=== PATIENT | female | born 1960 | race African-American/Black ===

== ENCOUNTER 2017-01-20 12:25 | Inpatient (IN) | payer BC ==
[2017-01-20] VITALS (7 sets, daily range): BP systolic 120–157; BP diastolic 67–90
[~2017-01-20] VITALS: Ht 157.5 cm; Wt 114.4 kg
[~2017-01-20 12:25] MED LIST: ASPI-482 PO; GLIM1TAB2 PO; HYDR-971 PO; HYDR12.58 PO; LISI-334 PO; METF-620 PO; PROVENTIL HFA6.7 GM IH; SITA100T PO
--- NOTE | 2017-01-20 12:53 | EKG ---
[facility] [address] [place] [address] Test Date: 2017-01-20 Test Time: 12:50:22 Pat Name: NING ROUSE Department: Room: Gender: F [employer]: : 1960 Requested By: KELY KRISHNAMURTHY Order Number: [id number] Reading MD: Lianne Beltrán Measurements Intervals [place] Rate: 78 P: 37 [place]: 134 QRS: 32 QRSD: 78 T: 138 QT: 388 QTc: 446 Interpretive Statements SINUS RHYTHM ST & T ABNORMALITY, CONSIDER HIGH LATERAL ISCHEMIA OR LEFT VENTRICULAR STRAIN ABNORMAL ECG RI6.01 No previous ECG available for comparison Electronically Signed On 01-22-2017 17:20:26 CDT by Lianne Beltrán
[2017-01-20] MEDS ORDERED: IV NORMAL SALINE 1000ML BAG 1,000 ML IV SCH ×2 (12:57→16:36)
[2017-01-20 13:15] LABS: BILIRUBIN,URINE NEGATIVE (NEG); GLUCOSE,URINE 100 mg/dL (NEG); NITRITE,URINE NEGATIVE (NEG); PROTEIN,URINE >=300 mg/dL (NEG-TRACE); UROBILINOGEN,URINE 0.2 mg/dL (0.2 mg/dL)
--- NOTE | 2017-01-20 13:18 | PHYS DOC ---
Past Medical History Past Medical History: Asthma, CVA, Diabetes-Type II, Hypertension, TIA Past Surgical History: Hysterectomy, Knee Replacement Alcohol Use: None Drug Use: None Adult General Chief Complaint Chief Complaint: WEAKNESS/GENERALIZED HPI HPI Patient is a 56 year old female who presents with complaint of confusion and weakness. Patient states that her symptoms came on suddenly this morning. Patient states that she is having difficulty remembering "periods of time" throughout the day today. The patient is accompanied by her spouse who confirms that the patient's behavior has been altered. He states that at times she "doesn 't seem there." He confirms that her activity level has gone down significantly over the past 2 days. Patient states that she has history of hypertension and that she took her blood pressure medication this morning but admits that she did not take it yesterday. Patient has not had any fevers, chest pain, nausea, or abdominal pain. Patient denies any focal weakness, difficulty with speech or swallowing, or vision loss. Review of Systems Review of Systems Constitutional: Generalized weakness, denies fever or chills [] Eyes: Denies change in visual acuity, redness, or eye pain [] HENT: Denies nasal congestion or sore throat [] Respiratory: Denies cough or shortness of breath [] Cardiovascular: Denies chest pain or edema [] GI: Denies abdominal pain, nausea, vomiting, bloody stools or diarrhea [] : Denies dysuria or hematuria [] Musculoskeletal: Denies back pain or joint pain [] Integument: Denies rash or skin lesions [] Neurologic: Confusion, denies headache, focal weakness or sensory changes [] Current Medications Current Medications Current Medications Medications (Trade) Dose Ordered Sig/Kanu Start Time Stop Time Status Last Admin Dose Admin Nicardipine HCl/ Sodium Chloride (Cardene/Iv Sodium Chloride 0.9% 250ml) 270 ml @ 0 mls/hr CONT PRN 01/20/17 13:00 01/20/17 13:14 0 MLS/HR Sodium Chloride 1,000 ml @ 100 mls/hr Q10H 01/20/17 12:57 01/20/17 22:56 01/20/17 13:27 100 MLS/HR Allergies Allergies Allergies Uncoded Allergies Type Severity Reaction Last Updated Verified eggs Adverse Reaction Intermediate Nausea/vomiting 09/02/14 Physical Exam Physical Exam Constitutional: Alert, afebrile, hypertensive, no acute distress. [] HENT: Normocephalic, atraumatic, bilateral external ears normal, oropharynx moist, no oral exudates, nose normal. [] Eyes: PERRLA, EOMI, conjunctiva normal, no discharge. [] Neck: Normal range of motion, no tenderness, supple, no stridor. [] Cardiovascular:Heart rate regular rhythm, no murmur [] Lungs & Thorax: Bilateral breath sounds clear to auscultation [] Abdomen: Bowel sounds normal, soft, no tenderness, no masses, no pulsatile masses. [] Skin: Warm, dry, no erythema, no rash. [] Back: No tenderness, no CVA tenderness. [] Extremities: No tenderness, no cyanosis, no clubbing, ROM intact, no edema. [] Neurologic: Alert and oriented X 3, disoriented to events, normal motor function , normal sensory function, no focal deficits noted. [] Current Patient Data Vital Signs Vital Signs Date Time Temp Pulse Resp B/P Pulse Ox O2 Delivery O2 Flow Rate FiO2 01/20/17 13:52 76 20 195/89 99 01/20/17 12:30 97.8 Room Air 97.8 Lab Values Laboratory Tests Test 01/20/17 12:45 01/20/17 13:20 01/20/17 14:05 Urine Collection Type Void Urine Color Yellow Urine Clarity Clear Urine pH 6.0 Urine Specific [place] 1.010 Urine Protein >=300mg/dL (NEG-TRACE) Urine Glucose (UA) 100mg/dL (NEG) Urine Ketones (Stick) Negativemg/dL (NEG) Urine Blood Small (NEG) Urine Nitrite Negative (NEG) Urine Bilirubin Negative (NEG) Urine Urobilinogen Dipstick 0.2mg/dL (0.2 mg/dL) Urine Leukocyte Esterase Trace (NEG) Urine RBC Occ/HPF (0-2) Urine WBC 5-10/HPF (0-4) Urine Squamous Epithelial Cells Mod/LPF Urine Bacteria Few/HPF (0-FEW) White Blood Count 9.1x10^3/uL (4.0-11.0) Red Blood Count 4.17x10^6/uL (3.50-5.40) Hemoglobin 12.0g/dL (12.0-15.5) Hematocrit 36.7% (36.0-47.0) Mean Corpuscular Volume 88fL (79-100) Mean Corpuscular Hemoglobin 29pg (25-35) Mean Corpuscular Hemoglobin Concent 33g/dL (31-37) Red Cell Distribution Width 13.3% (11.5-14.5) Platelet Count 368x10^3/uL (140-400) Neutrophils (%) (Auto) 63% (31-73) Lymphocytes (%) (Auto) 29% (24-48) Monocytes (%) (Auto) 5% (0-9) Eosinophils (%) (Auto) 3% (0-3) Basophils (%) (Auto) 1% (0-3) Neutrophils # (Auto) 5.7x10^3uL (1.8-7.7) Lymphocytes # (Auto) 2.6x10^3/uL (1.0-4.8) Monocytes # (Auto) 0.5x10^3/uL (0.0-1.1) Eosinophils # (Auto) 0.2x10^3/uL (0.0-0.7) Basophils # (Auto) 0.0x10^3/uL (0.0-0.2) Prothrombin Time 13.1SEC (11.7-14.0) Prothrombin Time INR 1.1 (0.8-1.1) PTT 40SEC (24-38) H Sodium Level 140mmol/L (136-145) Potassium Level 3.9mmol/L (3.5-5.1) Chloride Level 104mmol/L (98-107) Carbon Dioxide Level 27mmol/L (21-32) Anion Gap 9 (6-14) Blood Urea Nitrogen 16mg/dL (7-20) Creatinine 1.0mg/dL (0.6-1.0) Estimated GFR (Cockcroft-Gault) 68.9 BUN/Creatinine Ratio 16 (6-20) Glucose Level 155mg/dL (70-99) H Calcium Level 8.8mg/dL (8.5-10.1) Magnesium Level 2.0mg/dL (1.8-2.4) Total Bilirubin 0.3mg/dL (0.2-1.0) Aspartate Amino Transferase (AST) 16U/L (15-37) Alanine Aminotransferase (ALT) 18U/L (14-59) Alkaline Phosphatase 142U/L (46-116) H Total Protein 7.7g/dL (6.4-8.2) Albumin 2.9g/dL (3.4-5.0) L Albumin/Globulin Ratio 0.6 (1.0-1.7) L Lipase 79U/L (73-393) Laboratory Tests 01/20/17 13:20 Laboratory Tests 01/20/17 14:05 EKG EKG Interpreted by me: Heart rate 78, sinus rhythm, normal intervals, normal axis, T -wave inversions in the lateral leads and in V5 and V6, no acute ST elevations or depressions [] Radiology/Procedures Radiology/[place] [address] IMAGING REPORT Signed PATIENT: NING ROUSE ACCOUNT: [id number] : 1960 LOCATION: ER AGE: 56 SEX: F EXAM STATUS: REG ER ORD. PHYSICIAN: KELY KRISHNAMURTHY MD REASON: altered mental status, rule out acute cardiopulmonary abnormality PROCEDURE: PORTABLE CHEST 1V Portable chest, 01/20/2017: History: Altered mental status Comparison is made to a study from 11/03/2016. The heart size and pulmonary vascularity are normal. No pulmonary infiltrates are seen. There is no evidence of pleural fluid. Scattered spurs are present in the spine. IMPRESSION: No acute cardiopulmonary abnormality is detected. DICTATED and SIGNED BY: RUIZ ALMARAZ MD DATE: 01/20/17 145 CC: KELY KRISHNAMURTHY MD; PORTER LY MD ~ [address] [address] IMAGING REPORT Signed PATIENT: NING ROUSE ACCOUNT: [id number] : 1960 LOCATION: ER AGE: 56 SEX: F EXAM STATUS: REG ER ORD. PHYSICIAN: KELY KRISHNAMURTHY MD REASON: altered mental status PROCEDURE: CT HEAD WO CONTRAST Indication altered mental status. History of TIAs. Noncontrast images of the head were obtained. No prior imaging of the head is available. The calvarium appears unremarkable. The visualized paranasal sinuses appear normal. There is some underlying atrophy. There is a lucency in the right white deep white matter likely reflecting old microvascular disease. There is no hemorrhage. A mass or definite acute finding is not seen. If clinically warranted additional imaging evaluation could be obtained with MRI. IMPRESSION: Chronic changes. No definite acute finding seen on noncontrast CT images of the head PQRS Compliance Statement: One or more of the following individualized dose reduction techniques were utilized for this examination: 1. Automated exposure control 2. Adjustment of the mA and/or kV according to patient size 3. Use of iterative reconstruction technique DICTATED and SIGNED BY: JAYLEN MUKHERJEE MD DATE: 01/20/17 1344 CC: KELY KRISHNAMURTHY MD; PORTER LY MD ~ [] Course & Med Decision Making Course & Med Decision Making Pertinent Labs and Imaging studies reviewed. (See chart for details) Patient was started on IV Cardene in the emergency department due to presence of critically high blood pressure and altered mental status. Patient's blood pressure was reduced by 25% while on the drip in the emergency department and patient's vital signs are stabilizing at this time. The patient will need admission for continued treatment of hypertensive encephalopathy. I spoke with Dr. Talamantes who accepted care patient in hospital. Critical care time excluding procedures: 35 minutes Dragon Disclaimer Dragon Disclaimer This electronic medical record was generated, in whole or in part, using a voice recognition dictation system. Departure Departure Impression: Primary Impression: Hypertensive encephalopathy Additional Impression: Moderate protein malnutrition Disposition: ADMITTED INPATIENT Admitting Physician: Jessica Talamantes Condition: GUARDED Referrals: PORTER LY MD (PCP) Problem Qualifiers KELY KRISHNAMURTHY MD Jan 20, 2017 13:18
[2017-01-20 13:31] LABS: BASO % 1 % (0-3); EOS % 3 % (0-3); HEMATOCRIT 36.7 % (36.0-47.0); LYMPH # 2.6 x10^3/uL (1.0-4.8); LYMPH % 29 % (24-48); MEAN CORPUSCULAR HEMOGLOBIN 29 pg (25-35); MEAN CORPUSCULAR HGB CONC 33 g/dL (31-37); MEAN CORPUSCULAR VOLUME 88 fL (79-100); MONO % 5 % (0-9); NEUT % 63 % (31-73); PLATELET COUNT 368 x10^3/uL (140-400); RED BLOOD COUNT 4.17 x10^6/uL (3.50-5.40); RED CELL DISTRIBUTION WIDTH 13.3 % (11.5-14.5); WHITE BLOOD COUNT 9.1 x10^3/uL (4.0-11.0)
[2017-01-20 13:34] LABS: BACTERIA,URINE FEW /HPF (0-FEW); RBC,URINE OCC /HPF (0-2); SQUAMOUS EPITHELIAL CELL,UR MOD /LPF
[2017-01-20 13:40] LABS: INR 1.1 (0.8-1.1); PROTHROMBIN TIME PATIENT 13.1 SEC (11.7-14.0)
--- NOTE | 2017-01-20 14:03 | RAD ---
Portable chest, 01/20/2017: History: Altered mental status Comparison is made to a study from 11/03/2016. The heart size and pulmonary vascularity are normal. No pulmonary infiltrates are seen. There is no evidence of pleural fluid. Scattered spurs are present in the spine. IMPRESSION: No acute cardiopulmonary abnormality is detected.
--- NOTE | 2017-01-20 14:05 | RAD ---
Indication altered mental status. History of TIAs. Noncontrast images of the head were obtained. No prior imaging of the head is available. The calvarium appears unremarkable. The visualized paranasal sinuses appear normal. There is some underlying atrophy. There is a lucency in the right white deep white matter likely reflecting old microvascular disease. There is no hemorrhage. A mass or definite acute finding is not seen. If clinically warranted additional imaging evaluation could be obtained with MRI. IMPRESSION: Chronic changes. No definite acute finding seen on noncontrast CT images of the head PQRS Compliance Statement: One or more of the following individualized dose reduction techniques were utilized for this examination: 1. Automated exposure control 2. Adjustment of the mA and/or kV according to patient size 3. Use of iterative reconstruction technique
[2017-01-20 14:27] LABS: CALCIUM 8.8 mg/dL (8.5-10.1); GFR 68.9; POTASSIUM 3.9 mmol/L (3.5-5.1)
--- NOTE | 2017-01-20 14:28 | ACF ---
Admission Forms Criteria MENTAL STATUS CHANGE Clinical Indications for Inpatient Care (Place 'X' for any and all applicable criteria): Ongoing inpatient care may be needed for 1 or more of the following(1)(2)(3)(5)( 6): [X]I. Suspected serious etiology (eg, medical disorder, AGED OR DISABLED CARER event) of altered mental status [ ]II. Danger to self or others not manageable at lower level of care [ ]III. Grave disability (eg, inability to perform self care necessary at lower level of care) [ ]IV. Agitation or inappropriate behavior interfering with care for primary condition (eg, attempting to discontinue lines or drains prematurely, unable to cooperate with respiratory care) [ ]V. Delirium [A] [D][E] as described by 1 or more of the following(26): [ ]a) Delirium due to alcohol or sedative [F] withdrawal [ ]b) Delirium of uncertain etiology that has not responded to appropriate empiric treatment [ ]c) Delirium that prevents performance of a life-sustaining function (eg, feeding or hydrating oneself) [ ]. General contraindications and/or Inappropriate clinical situations for Observational Care in patients with Mental Status Change, when ANY ONE of the following is required: [ ]a) Prediction of prolongation of LOS based on ANY ONE of the following may be considered as a contraindication for observational care 2, 3, 4, 5, 6, 7, 8, 9, 10, 11 [ ]i) Age > 65 yrs. [ ]ii) Patient arriving by ambulance [ ]iii) Patient with high acuity [ ]iv) Patient requiring vital sign monitoring [ ]v) Patient on IV medication [ ]b) Systolic blood pressures greater than or equal to 180mmHg 3, 12 [ ]c) Patient with altered mental status including delirium and other alteration of consciousness, (3) [ ]d) Patient whose discharge disposition will be to a assisted home or rehabilitation home should not be managed in Emergency Department Observation Unit. CMS rule requires 3 days hospital stay before such placement.3,13 [ ]e) Patient with failure to thrive due to broad array of etiologies 3,16,17 [ ]f) Inability to ambulate 3,14 Extended stay beyond goal length of stay for the primary condition may be needed until ALL of the following are present(3)(5): [ ]a) Underlying medical etiology of mental status change is absent, or has been established and adequately treated [ ]b) Danger to self or others is absent or manageable at lower level of care. [ ]c) Behavior crisis management, including physical or chemical restraints, is not required or available at lower level of car [ ]d) Substance or alcohol withdrawal is absent or manageable at lower level of care. [ ]e) Behavioral symptoms (eg, agitation, somnolence, inappropriate behavior) are absent, or are manageable at lower level of care. The original [facility] [employer] content created by [facility] has been revised. The portions of the content which have been revised are identified through the use of italic text or in bold, and [facility] has neither reviewed nor approved the modified material. All other unmodified content is copyright [facility]. Please see references footnoted in the original [facility] edition 2016 Admission Criteria Met?: Yes EMILIANO BLAND Jan 20, 2017 14:28
[2017-01-20 14:33] LABS: ALBUMIN 2.9 g/dL (3.4-5.0); ALBUMIN/GLOBULIN RATIO 0.6 (1.0-1.7); TOTAL BILIRUBIN 0.3 mg/dL (0.2-1.0); TOTAL PROTEIN 7.7 g/dL (6.4-8.2)
[2017-01-20] MEDS ORDERED: ONDANSETRON PF 4 MG/2 ML VIAL. IV PRN (16:45)
[2017-01-20] MEDS ORDERED: fentaNYL PF VIAL 100 MCG/2 ML VIAL IV PRN (16:45)
[2017-01-20] MEDS ORDERED: ACETAMINOPHEN 325 MG TABLET. PO PRN (16:45)
[2017-01-20] MEDS ORDERED: HYDROCODONE/APAP 5/325MG TABLET. PO PRN (17:30)
[2017-01-20] MEDS ORDERED: NON FORMULARY ITEM (Albuterol Sulfate (Proventil Hfa Inhaler) 2 PUFF) IH PRN (17:30)
[2017-01-20] MEDS ORDERED: ALBUTEROL SULFATE 2.5 MG/3 ML NEBU. NEB PRN (17:45)
--- NOTE | 2017-01-20 17:51 | PDOC1 ---
History and Physical Date of Admission Date of Admission DATE: 01/20/17 TIME: 17:51 Identification/Chief Complaint Chief Complaint confusion Problems: Source Source: Caregiver, Chart review, Patient History of Present Illness History of Present Illness Ms. Rinaldi, is a 56 year old female w/ complaint of confusion and weakness. She and report a headache yesterday, then confusion. She missed her meds yesterday, did just get refills on meds Patient states that her symptoms were progressively worse this morning. Patient states that she is having difficulty remembering "periods of time" throughout the day today. Spouse confirms altered mental status, but now seems improved she reports her headache is better, on cardene gtt, no other change noted Past Medical History Cardiovascular: HTN Pulmonary: Asthma Renal/: No pertinent hx Endocrine: No pertinent hx Family History Family History: No Significant Social History Smoke: No ALCOHOL: none Drugs: None Current Problem List Problem List Problems Medical Problems: (1) Hypertensive encephalopathy Status: Acute (2) Moderate protein malnutrition Status: Acute Problems: Current Medications Current Medications Current Medications Sodium Chloride 1,000 ml @ 100 mls/hr Q10H IV Last administered on 01/20/17 13:27; Start 01/20/17 at 12:57; Stop 01/20/17 at 22:56 Nicardipine HCl/ Sodium Chloride (Cardene/Iv Sodium Chloride 0.9% 250ml) 270 ml @ 0 mls/hr CONT PRN IV SEE I/O RECORD Last administered on 01/20/17 13:14; Start 01/20/17 at 13:00 Ondansetron HCl (Zofran) 4 mg PRN Q8HRS PRN IV NAUSEA/VOMITING; Start 01/20/17 at 16:45; Stop 01/21/17 at 16:44 Fentanyl Citrate 50 mcg 50 mcg PRN Q2HR PRN IV PAIN; Start 01/20/17 at 16:45; Stop 01/21/17 at 16:44 Sodium Chloride (Iv Sodium Chloride 0.9% 1000ml Bag) 1,000 ml @ 100 mls/hr Q10H IV ; Start 01/20/17 at 16:36; Stop 01/21/17 at 16:35 Acetaminophen (Tylenol) 650 mg PRN Q4HRS PRN PO FEVER; Start 01/20/17 at 16:45 ; Stop 01/21/17 at 16:44 Aspirin (Ecotrin) 81 mg DAILYWBKFT PO ; Start 01/21/17 at 08:00 Acetaminophen/ Hydrocodone Bitart (Lortab 5/325) 1 tab PRN Q6HRS PRN PO PAIN; Start 01/20/17 at 17:30 Lisinopril (Prinivil) 20 mg BID PO ; Start 01/20/17 at 21:00 Metformin HCl (Glucophage) 850 mg BIDWMEALS PO ; Start 01/20/17 at 18:00 Non-Formulary Medication 2 puff Q4HRS PRN IH SHORTNESS OF BREATH; Start at 17:30; Status UNV Glimepiride (Amaryl) 1 mg DAILYWBKFT PO ; Start 01/21/17 at 08:00 Hydrochlorothiazide (Microzide) 12.5 mg DAILY PO ; Start 01/21/17 at 09:00 Linagliptin (Tradjenta) 5 mg DAILY PO ; Start 01/21/17 at 09:00 Albuterol Sulfate (Ventolin Neb Soln) 2.5 mg PRN Q4HRS PRN NEB SHORTNESS OF BREATH; Start 01/20/17 at 17:45 Active Scripts Active [place]well 5-325 Tablet (Acetaminophen/Hydrocodone Bitart) 1 Each Tablet 1 Tab PO PRN Q6HRS PRN Reported Proventil Hfa Inhaler (Albuterol Sulfate) 6.7 Gm Hfa.aer.ad 2 Puff IH Q4HRS PRN Lisinopril 20 Mg Tablet 20 Tab PO BID Hydrochlorothiazide Tablet (Hydrochlorothiazide) 12.5 Mg Tablet 1 Tab PO DAILY Glimepiride 1 Mg Tablet 1 Tab PO DAILY Januvia (Sitagliptin Phosphate) 100 Mg Tablet 1 Tab PO DAILY Metformin Hcl 1,000 Mg Tablet 1 Tab PO BID Aspir 81 (Aspirin) 81 Mg Tablet. 1 Tab PO DAILY Allergies Allergies: Uncoded Allergies: eggs (Adverse Reaction, Intermediate, Nausea/vomiting, 09/02/14) ROS General: YES: Fatigue, No: Appetite, Chills, Malaise, Night Sweats, Other PSYCHOLOGICAL ROS: YES: Concentration difficultie, Memory difficulties, No: Anxiety, Behavioral Disorder, Decreased libido, Depression, Disorientation, Hallucinations, Hostility, Irritablity, Mood Swings, Obsessive thoughts, Other, Sleep disturbances Eyes: No Blurry vision, No Decreased vision, No Double vision, No Dry eyes, No Excessive tearing, No Eye Pain, No Itchy Eyes, No Loss of vision, No Other, No Photophobia, No Scotomata, No Uses contacts, No Uses glasses HEENT: YES: Heacaches, No: Epistaxis, Hearing change, Nasal congestion, Nasal discharge, Oral lesions, Other, Sinus pain, Sneezing, Snoring, Sore Throat, Tinnitus, Vertigo, Visual Changes, Vocal changes Respiratory: No: Cough, Hemoptysis, Orthopnea, Other, Pleuritic Pain, SOB with excertion, Shortness of breath, Sputum Changes, Stridor, Tachypnea, Wheezing Cardiovascular: No Chest Pain, No Edema, No Lt Headedness, No Orthopnea, No Other, No Palpitations, No Paroxysmal Noc. Dyspnea Gastrointestinal: No Abdominal Pain, No Constipation, No Diarrhea, No Hematochezia, No Melena, No Nausea, No Other, No Vomiting Genitourinary: No , No , No , No , No , No , No , No Discharge, No Dysuria, No Flank Pain, No Frequency, No Hematuria, No Incontinence, No Other, No Pain, No Retention, No Urgency Musculoskeletal: No Gait Disturbance, No Joint Pain, No Joint Stiffness, No Joint Swelling, No Muscle Pain, No Muscular Weakness, No Other, No Pain In:, No Swelling In: Neurological: Yes Behavorial Changes, Yes Confusion, Yes Headaches, Yes Memory Loss Skin: No Acne, No Dry Skin, No Eczema, No Hair Changes, No Lumps, No Mole Changes, No Mottling, No Nail Changes, No Other, No Pruritus, No Rash, No Skin Lesion Changes Physical Exam General: Alert, Oriented X3, Cooperative, No acute distress, Other (improved per spouse and patient) HEENT: Atraumatic, PERRLA, EOMI, Mucous membr. moist/pink Abdomen: Normal bowel sounds, Soft Extremities: No clubbing, No edema, Normal pulses Skin: No breakdown, No significant lesion Neuro: Normal tone, Sensation intact, Cranial nerves 3-12 NL Psych/Mental Status: Mood NL Vitals Vitals Vital Signs Date Time Temp Pulse Resp B/P Pulse Ox O2 Delivery O2 Flow Rate FiO2 01/20/17 16:45 86 18 163/74 97 Room Air 01/20/17 12:30 97.8 97.8 Labs Labs Laboratory Tests Test 01/20/17 12:45 01/20/17 13:20 01/20/17 14:05 Urine Collection Type Void Urine Color Yellow Urine Clarity Clear Urine pH 6.0 Urine Specific [place] 1.010 Urine Protein >=300mg/dL (NEG-TRACE) Urine Glucose (UA) 100mg/dL (NEG) Urine Ketones (Stick) Negativemg/dL (NEG) Urine Blood Small (NEG) Urine Nitrite Negative (NEG) Urine Bilirubin Negative (NEG) Urine Urobilinogen Dipstick 0.2mg/dL (0.2 mg/dL) Urine Leukocyte Esterase Trace (NEG) Urine RBC Occ/HPF (0-2) Urine WBC 5-10/HPF (0-4) Urine Squamous Epithelial Cells Mod/LPF Urine Bacteria Few/HPF (0-FEW) White Blood Count 9.1x10^3/uL (4.0-11.0) Red Blood Count 4.17x10^6/uL (3.50-5.40) Hemoglobin 12.0g/dL (12.0-15.5) Hematocrit 36.7% (36.0-47.0) Mean Corpuscular Volume 88fL (79-100) Mean Corpuscular Hemoglobin 29pg (25-35) Mean Corpuscular Hemoglobin Concent 33g/dL (31-37) Red Cell Distribution Width 13.3% (11.5-14.5) Platelet Count 368x10^3/uL (140-400) Neutrophils (%) (Auto) 63% (31-73) Lymphocytes (%) (Auto) 29% (24-48) Monocytes (%) (Auto) 5% (0-9) Eosinophils (%) (Auto) 3% (0-3) Basophils (%) (Auto) 1% (0-3) Neutrophils # (Auto) 5.7x10^3uL (1.8-7.7) Lymphocytes # (Auto) 2.6x10^3/uL (1.0-4.8) Monocytes # (Auto) 0.5x10^3/uL (0.0-1.1) Eosinophils # (Auto) 0.2x10^3/uL (0.0-0.7) Basophils # (Auto) 0.0x10^3/uL (0.0-0.2) Prothrombin Time 13.1SEC (11.7-14.0) Prothromb Time International Ratio 1.1 (0.8-1.1) Activated Partial Thromboplast Time 40SEC (24-38) Sodium Level 140mmol/L (136-145) Potassium Level 3.9mmol/L (3.5-5.1) Chloride Level 104mmol/L (98-107) Carbon Dioxide Level 27mmol/L (21-32) Anion Gap 9 (6-14) Blood Urea Nitrogen 16mg/dL (7-20) Creatinine 1.0mg/dL (0.6-1.0) Estimated GFR (Cockcroft-Gault) 68.9 BUN/Creatinine Ratio 16 (6-20) Glucose Level 155mg/dL (70-99) Calcium Level 8.8mg/dL (8.5-10.1) Magnesium Level 2.0mg/dL (1.8-2.4) Total Bilirubin 0.3mg/dL (0.2-1.0) Aspartate Amino Transf (AST/SGOT) 16U/L (15-37) Alanine Aminotransferase (ALT/SGPT) 18U/L (14-59) Alkaline Phosphatase 142U/L (46-116) Total Protein 7.7g/dL (6.4-8.2) Albumin 2.9g/dL (3.4-5.0) Albumin/Globulin Ratio 0.6 (1.0-1.7) Lipase 79U/L (73-393) Laboratory Tests Test 01/20/17 12:45 01/20/17 13:20 01/20/17 14:05 Urine Collection Type Void Urine Color Yellow Urine Clarity Clear Urine pH 6.0 Urine Specific [place] 1.010 Urine Protein >=300mg/dL (NEG-TRACE) Urine Glucose (UA) 100mg/dL (NEG) Urine Ketones (Stick) Negativemg/dL (NEG) Urine Blood Small (NEG) Urine Nitrite Negative (NEG) Urine Bilirubin Negative (NEG) Urine Urobilinogen Dipstick 0.2mg/dL (0.2 mg/dL) Urine Leukocyte Esterase Trace (NEG) Urine RBC Occ/HPF (0-2) Urine WBC 5-10/HPF (0-4) Urine Squamous Epithelial Cells Mod/LPF Urine Bacteria Few/HPF (0-FEW) White Blood Count 9.1x10^3/uL (4.0-11.0) Red Blood Count 4.17x10^6/uL (3.50-5.40) Hemoglobin 12.0g/dL (12.0-15.5) Hematocrit 36.7% (36.0-47.0) Mean Corpuscular Volume 88fL (79-100) Mean Corpuscular Hemoglobin 29pg (25-35) Mean Corpuscular Hemoglobin Concent 33g/dL (31-37) Red Cell Distribution Width 13.3% (11.5-14.5) Platelet Count 368x10^3/uL (140-400) Neutrophils (%) (Auto) 63% (31-73) Lymphocytes (%) (Auto) 29% (24-48) Monocytes (%) (Auto) 5% (0-9) Eosinophils (%) (Auto) 3% (0-3) Basophils (%) (Auto) 1% (0-3) Neutrophils # (Auto) 5.7x10^3uL (1.8-7.7) Lymphocytes # (Auto) 2.6x10^3/uL (1.0-4.8) Monocytes # (Auto) 0.5x10^3/uL (0.0-1.1) Eosinophils # (Auto) 0.2x10^3/uL (0.0-0.7) Basophils # (Auto) 0.0x10^3/uL (0.0-0.2) Prothrombin Time 13.1SEC (11.7-14.0) Prothromb Time International Ratio 1.1 (0.8-1.1) Activated Partial Thromboplast Time 40SEC (24-38) Sodium Level 140mmol/L (136-145) Potassium Level 3.9mmol/L (3.5-5.1) Chloride Level 104mmol/L (98-107) Carbon Dioxide Level 27mmol/L (21-32) Anion Gap 9 (6-14) Blood Urea Nitrogen 16mg/dL (7-20) Creatinine 1.0mg/dL (0.6-1.0) Estimated GFR (Cockcroft-Gault) 68.9 BUN/Creatinine Ratio 16 (6-20) Glucose Level 155mg/dL (70-99) Calcium Level 8.8mg/dL (8.5-10.1) Magnesium Level 2.0mg/dL (1.8-2.4) Total Bilirubin 0.3mg/dL (0.2-1.0) Aspartate Amino Transf (AST/SGOT) 16U/L (15-37) Alanine Aminotransferase (ALT/SGPT) 18U/L (14-59) Alkaline Phosphatase 142U/L (46-116) Total Protein 7.7g/dL (6.4-8.2) Albumin 2.9g/dL (3.4-5.0) Albumin/Globulin Ratio 0.6 (1.0-1.7) Lipase 79U/L (73-393) VTE Prophylaxis Ordered VTE Prophylaxis Devices: Yes VTE Pharmacological Prophylaxi: No Assessment/Plan Assessment/Plan acute encephalopathy malignant htn morbid obesity, BMI 46 DM2, cont home meds proteinuria on UA, check spot protein, consult renal, BP and DM2 risk of nephrosis, cont KENNA-i admitted to ICU for cardene gtt SYED BRENNER MD Jan 20, 2017 17:51
[2017-01-20] MEDS: METFORMIN 850 MG TABLET PO SCH (18:00)
[2017-01-20] MEDS: LISINOPRIL 20 MG TABLET PO SCH (20:15)
[2017-01-21] VITALS (16 sets, daily range): BP systolic 114–161; BP diastolic 61–95
[2017-01-21 05:16] LABS: BASO # 0.1 x10^3/uL (0.0-0.2); BASO % 1 % (0-3); EOS % 3 % (0-3); HEMATOCRIT 34.7 % (36.0-47.0); HEMOGLOBIN 11.5 g/dL (12.0-15.5); LYMPH # 2.9 x10^3/uL (1.0-4.8); LYMPH % 30 % (24-48); MEAN CORPUSCULAR HEMOGLOBIN 29 pg (25-35); MEAN CORPUSCULAR HGB CONC 33 g/dL (31-37); MEAN CORPUSCULAR VOLUME 87 fL (79-100); MONO % 6 % (0-9); NEUT % 60 % (31-73); PLATELET COUNT 359 x10^3/uL (140-400); RED BLOOD COUNT 3.98 x10^6/uL (3.50-5.40); RED CELL DISTRIBUTION WIDTH 12.9 % (11.5-14.5); WHITE BLOOD COUNT 9.5 x10^3/uL (4.0-11.0)
[2017-01-21 05:22] LABS: CALCIUM 8.4 mg/dL (8.5-10.1); CREATININE 1.1 mg/dL (0.6-1.0); GFR 61.7; POTASSIUM 4.3 mmol/L (3.5-5.1)
[2017-01-21] MEDS: LINAGLIPTIN 5 MG TABLET PO SCH (08:31)
[2017-01-21] MEDS: HYDROCHLOROTHIAZIDE 12.5 MG CAPSULE. PO SCH (08:31)
[2017-01-21] MEDS: ASPIRIN ENTERIC COATED 81 MG TABLET.DR. PO SCH (08:31)
[2017-01-21] MEDS: LISINOPRIL 20 MG TABLET PO SCH ×2 (08:32→20:51)
[2017-01-21] MEDS: GLIMEPIRIDE 2 MG TABLET. PO SCH (08:32)
--- NOTE | 2017-01-21 08:54 | PDOC2 ---
CARDIAC CONSULT DATE OF CONSULT Date of Consult DATE: 01/21/17 TIME: 08:45 REASON FOR CONSULT Reason for Consult: Hypertensive encephalopathy REFERRING PHYSICIAN Referring Physician: Rojas SOURCE Source: Chart review, Patient HISTORY OF PRESENT ILLNESS HISTORY OF PRESENT ILLNESS This is pleasant 56 yo female admitted for complains of noted confusion and weakness by spouse. 2 days ago she has been feeling weak but was able to do some chores and actually forgot to take her BP meds. Yesterday afternoon, her came home and noted that she was acting differently and asked her several questions and noted that she was confused. This is what prompted her to bring her to ED and her BP was noted initially at 239/114. She was also complaining of FELIPE at that time but no notable signs of unilateral weakness , visual or auditory disturbances. From what she could recall there was no signs of chest pain, SOA, nausea, vomiting, nor palpitations. Denies any prior hx of CAD, VTE, nor syncope. No prior CVA, falls or any injury. No recreational drug use. She has not been workup for ZENA. PAST MEDICAL HISTORY Cardiovascular: HTN, Hyperlipidemia Pulmonary: Asthma CENTRAL NERVOUS SYSTEM: Other (No pertinent history) GI: No pertinent hx Heme/Onc: Other (myelodysplasia) Hepatobiliary: No pertinent hx Psych: No pertinent hx Musculoskeletal: Osteoarthritis Rheumatologic: No pertinent hx Infectious disease: No pertinent hx ENT: No pertinent hx Renal/: No pertinent hx Endocrine: Hypothyroidism (from 11th grade to first yr of college then normalized and was of meds) Dermatology: No pertinent hx PAST SURGICAL HISTORY Past Surgical History: Arthroscopy (bilateral knee and ankles), Hysterectomy, Other (abdominal surgery in relation to her myelodysplasia "They took my cells out") FAMILY HISTORY Family History: Diabetes (mother), Hypertension (mother) SOCIAL HISTORY Smoke: No ALCOHOL: none Drugs: None Lives: with Family CURRENT MEDICATIONS CURRENT MEDICATIONS Current Medications Medications (Trade) Dose Ordered Sig/Kanu Route PRN Reason Start Time Stop Time Status Last Admin Dose Admin Sodium Chloride 1,000 ml @ 100 mls/hr Q10H IV 01/20/17 12:57 01/20/17 18:40 DC 01/20/17 13:27 Nicardipine HCl 50 mg/Sodium Chloride 270 ml @ 0 mls/hr CONT PRN IV SEE I/O RECORD 01/20/17 13:00 01/21/17 07:08 Sodium Chloride (Iv Sodium Chloride 0.9% 1000ml Bag) 1,000 ml @ 100 mls/hr Q10H IV 01/20/17 16:36 01/20/17 18:40 DC 01/20/17 16:36 Acetaminophen (Tylenol) 650 mg PRN Q4HRS PRN PO FEVER 01/20/17 16:45 01/21/17 16:44 01/20/17 20:16 Aspirin (Ecotrin) 81 mg DAILYWBKFT PO 01/21/17 08:00 01/21/17 08:31 Lisinopril (Prinivil) 20 mg BID PO 01/20/17 21:00 01/21/17 08:32 Glimepiride (Amaryl) 1 mg DAILYWBKFT PO 01/21/17 08:00 01/21/17 08:32 Hydrochlorothiazide (Microzide) 12.5 mg DAILY PO 01/21/17 09:00 01/21/17 08:31 Linagliptin (Tradjenta) 5 mg DAILY PO 01/21/17 09:00 01/21/17 08:31 ALLERGIES ALLERGIES: Uncoded Allergies: eggs (Adverse Reaction, Intermediate, Nausea/vomiting, 09/02/14) ROS Review of System 14 point ROS evaluated with pertinent positives noted per HPI PHYSICAL EXAM General: Alert, Oriented X3, Cooperative, No acute distress HEENT: Atraumatic, Mucous membr. moist/pink Lungs: Clear to auscultation, Normal air movement Heart: Regular rate (Sinus tach), Normal S1, Normal S2 Abdomen: Soft, Other (obese) Extremities: No cyanosis, Other (trace to 1+ bilateral LE pitting edema) Neuro: Normal speech, Sensation intact Psych/Mental Status: Mental status NL, Mood NL MUSCULOSKELETAL: Osteoarthritic changes both hands VITALS VITALS Vital Signs Date Time Temp Pulse Resp B/P Pulse Ox O2 Delivery O2 Flow Rate FiO2 01/21/17 08:32 90 140/72 01/21/17 07:00 15 95 Room Air 01/21/17 03:00 98.5 98.5 LABS Lab: Laboratory Tests Test 01/20/17 12:32 01/20/17 12:45 01/20/17 13:20 01/20/17 14:05 Glucose (Fingerstick) 157mg/dL (70-99) Urine Collection Type Void Urine Color Yellow Urine Clarity Clear Urine pH 6.0 Urine Specific [place] 1.010 Urine Protein >=300mg/dL (NEG-TRACE) Urine Glucose (UA) 100mg/dL (NEG) Urine Ketones (Stick) Negativemg/dL (NEG) Urine Blood Small (NEG) Urine Nitrite Negative (NEG) Urine Bilirubin Negative (NEG) Urine Urobilinogen Dipstick 0.2mg/dL (0.2 mg/dL) Urine Leukocyte Esterase Trace (NEG) Urine RBC Occ/HPF (0-2) Urine WBC 5-10/HPF (0-4) Urine Squamous Epithelial Cells Mod/LPF Urine Bacteria Few/HPF (0-FEW) Urine Random Creatinine 64.6mg/dL (Not Estab.) Urine Random Total Protein 290.2mg/dL (Not Estab.) White Blood Count 9.1x10^3/uL (4.0-11.0) Red Blood Count 4.17x10^6/uL (3.50-5.40) Hemoglobin 12.0g/dL (12.0-15.5) Hematocrit 36.7% (36.0-47.0) Mean Corpuscular Volume 88fL (79-100) Mean Corpuscular Hemoglobin 29pg (25-35) Mean Corpuscular Hemoglobin Concent 33g/dL (31-37) Red Cell Distribution Width 13.3% (11.5-14.5) Platelet Count 368x10^3/uL (140-400) Neutrophils (%) (Auto) 63% (31-73) Lymphocytes (%) (Auto) 29% (24-48) Monocytes (%) (Auto) 5% (0-9) Eosinophils (%) (Auto) 3% (0-3) Basophils (%) (Auto) 1% (0-3) Neutrophils # (Auto) 5.7x10^3uL (1.8-7.7) Lymphocytes # (Auto) 2.6x10^3/uL (1.0-4.8) Monocytes # (Auto) 0.5x10^3/uL (0.0-1.1) Eosinophils # (Auto) 0.2x10^3/uL (0.0-0.7) Basophils # (Auto) 0.0x10^3/uL (0.0-0.2) Prothrombin Time 13.1SEC (11.7-14.0) Prothromb Time International Ratio 1.1 (0.8-1.1) Activated Partial Thromboplast Time 40SEC (24-38) Sodium Level 140mmol/L (136-145) Potassium Level 3.9mmol/L (3.5-5.1) Chloride Level 104mmol/L (98-107) Carbon Dioxide Level 27mmol/L (21-32) Anion Gap 9 (6-14) Blood Urea Nitrogen 16mg/dL (7-20) Creatinine 1.0mg/dL (0.6-1.0) Estimated GFR (Cockcroft-Gault) 68.9 BUN/Creatinine Ratio 16 (6-20) Glucose Level 155mg/dL (70-99) Calcium Level 8.8mg/dL (8.5-10.1) Magnesium Level 2.0mg/dL (1.8-2.4) Total Bilirubin 0.3mg/dL (0.2-1.0) Aspartate Amino Transf (AST/SGOT) 16U/L (15-37) Alanine Aminotransferase (ALT/SGPT) 18U/L (14-59) Alkaline Phosphatase 142U/L (46-116) Total Protein 7.7g/dL (6.4-8.2) Albumin 2.9g/dL (3.4-5.0) Albumin/Globulin Ratio 0.6 (1.0-1.7) Lipase 79U/L (73-393) Test 01/21/17 04:15 White Blood Count 9.5x10^3/uL (4.0-11.0) Red Blood Count 3.98x10^6/uL (3.50-5.40) Hemoglobin 11.5g/dL (12.0-15.5) Hematocrit 34.7% (36.0-47.0) Mean Corpuscular Volume 87fL (79-100) Mean Corpuscular Hemoglobin 29pg (25-35) Mean Corpuscular Hemoglobin Concent 33g/dL (31-37) Red Cell Distribution Width 12.9% (11.5-14.5) Platelet Count 359x10^3/uL (140-400) Neutrophils (%) (Auto) 60% (31-73) Lymphocytes (%) (Auto) 30% (24-48) Monocytes (%) (Auto) 6% (0-9) Eosinophils (%) (Auto) 3% (0-3) Basophils (%) (Auto) 1% (0-3) Neutrophils # (Auto) 5.7x10^3uL (1.8-7.7) Lymphocytes # (Auto) 2.9x10^3/uL (1.0-4.8) Monocytes # (Auto) 0.6x10^3/uL (0.0-1.1) Eosinophils # (Auto) 0.3x10^3/uL (0.0-0.7) Basophils # (Auto) 0.1x10^3/uL (0.0-0.2) Sodium Level 140mmol/L (136-145) Potassium Level 4.3mmol/L (3.5-5.1) Chloride Level 106mmol/L (98-107) Carbon Dioxide Level 21mmol/L (21-32) Anion Gap 13 (6-14) Blood Urea Nitrogen 20mg/dL (7-20) Creatinine 1.1mg/dL (0.6-1.0) Estimated GFR (Cockcroft-Gault) 61.7 Glucose Level 278mg/dL (70-99) Calcium Level 8.4mg/dL (8.5-10.1) ASSESSMENT/PLAN ASSESSMENT/PLAN 1. Malignant HTN: missed med 2 days ago. Possible hypertensive heart disease. Improved BP 2. Hypertensive encephalopathy: CT head no acute changes. Resolved 3. DM2: appears uncontrolled 4. HLP: uncontrolled 5. Morbid obesity: BMI 46 6. Suspect ZENA: notable features 7. Likely CKD: nephrology following Recommendations 1. Titrate off cardene 2. Currently sinus tach at rest. Will start on coreg. Resume home lisinopril/ HCTZ 3. TTE tomorrow 4. TSH, A1C 5. Increase lipitor 6. Monitor overnight and if no further neuro changes then would recommend start of ECASA 81 mg for primary primary prevention 7. Long discussion in regards to lifestyle modifications Problems: DAVID AVILEZ APRN Jan 21, 2017 08:54
[2017-01-21] MEDS: METFORMIN 850 MG TABLET PO SCH ×2 (09:02→17:31)
[2017-01-21] MEDS ORDERED: LABETALOL 20 MG/4 ML DISP.SYRIN. IVP PRN (10:30)
[2017-01-21] MEDS: CARVEDILOL 6.25 MG TABLET. PO SCH ×2 (11:26→17:31)
--- NOTE | 2017-01-21 11:29 | PDOC2 ---
CONSULT Date of Consult Date of Consult DATE: 01/21/17 TIME: 11:23 Reason for Consult Reason for Consult: PROTEINURIA Referring Physician Referring Physician: JORDIN Identification/Chief Complaint Chief Complaint CONFUSION Source Source: Chart review History of Present Illness Reason for Visit: THIS IS A 56 YR OLD ADMITTED WITH CONFUSION. ON PRESENTATION SHE IS NOTED TO HAVE HTN EMERGENCY. BRAIN IMAGES WERE NEG FOR ACUTE FINDINGS. LABS ARE WNL. SHE IS NOTED TO HAVE PROTEINURIA. SHE DOES HAVE A HX OF DM II AND HTN OF LONG STANDING DURATION. SHE HAS NOT SEEN A DIAPHRAGM BUILDER ON A REGULAR BASIS Past Medical History Cardiovascular: HTN, Hyperlipidemia Pulmonary: Asthma CENTRAL NERVOUS SYSTEM: Other (No pertinent history) GI: No pertinent hx Heme/Onc: Other (myelodysplasia) Hepatobiliary: No pertinent hx Psych: No pertinent hx Musculoskeletal: Osteoarthritis Rheumatologic: No pertinent hx Infectious disease: No pertinent hx ENT: No pertinent hx Renal/: No pertinent hx Endocrine: Hypothyroidism (from 11th grade to first yr of college then normalized and was of meds) Dermatology: No pertinent hx Past Surgical History Past Surgical History: Arthroscopy (bilateral knee and ankles), Hysterectomy, Other (abdominal surgery in relation to her myelodysplasia "They took my cells out") Family History Family History: Diabetes (mother), Hypertension (mother) Social History No ALCOHOL: none Drugs: None Lives: with Family Current Problem List Problem List Problems Medical Problems: (1) Hypertensive encephalopathy Status: Acute (2) Moderate protein malnutrition Status: Acute Current Medications Current Medications Current Medications Sodium Chloride 1,000 ml @ 100 mls/hr Q10H IV Last administered on 01/20/17 13:27; Start 01/20/17 at 12:57; Stop 01/20/17 at 18:40; Status DC Nicardipine HCl/ Sodium Chloride (Cardene/Iv Sodium Chloride 0.9% 250ml) 270 ml @ 0 mls/hr CONT PRN IV SEE I/O RECORD Last administered on 01/21/17 07:08; Start 01/20/17 at 13:00; Stop 01/21/17 at 10:21; Status DC Ondansetron HCl (Zofran) 4 mg PRN Q8HRS PRN IV NAUSEA/VOMITING; Start 01/20/17 at 16:45; Stop 01/21/17 at 16:44 Fentanyl Citrate 50 mcg 50 mcg PRN Q2HR PRN IV PAIN; Start 01/20/17 at 16:45; Stop 01/21/17 at 16:44 Sodium Chloride (Iv Sodium Chloride 0.9% 1000ml Bag) 1,000 ml @ 100 mls/hr Q10H IV Last administered on 01/20/17 16:36; Start 01/20/17 at 16:36; Stop at 18:40; Status DC Acetaminophen (Tylenol) 650 mg PRN Q4HRS PRN PO FEVER Last administered on 01/20 20:16; Start 01/20/17 at 16:45; Stop 01/21/17 at 16:44 Aspirin (Ecotrin) 81 mg DAILYWBKFT PO Last administered on 01/21/17 08:31; Start 01/21/17 at 08:00 Acetaminophen/ Hydrocodone Bitart (Lortab 5/325) 1 tab PRN Q6HRS PRN PO PAIN; Start 01/20/17 at 17:30 Lisinopril (Prinivil) 20 mg BID PO Last administered on 01/21/17 08:32; Start 01/20/17 at 21:00 Metformin HCl (Glucophage) 850 mg BIDWMEALS PO Last administered on 01/21/17 09:02; Start 01/20/17 at 18:00 Non-Formulary Medication 2 puff Q4HRS PRN IH SHORTNESS OF BREATH; Start at 17:30; Status UNV Glimepiride (Amaryl) 1 mg DAILYWBKFT PO Last administered on 01/21/17 08:32; Start 01/21/17 at 08:00 Hydrochlorothiazide (Microzide) 12.5 mg DAILY PO Last administered on 08:31; Start 01/21/17 at 09:00 Linagliptin (Tradjenta) 5 mg DAILY PO Last administered on 01/21/17 08:31; Start 01/21/17 at 09:00 Albuterol Sulfate (Ventolin Neb Soln) 2.5 mg PRN Q4HRS PRN NEB SHORTNESS OF BREATH; Start 01/20/17 at 17:45 Carvedilol (Coreg) 6.25 mg BIDWMEALS PO ; Start 01/21/17 at 11:00 Atorvastatin Calcium (Lipitor) 40 mg QHS PO ; Start 01/21/17 at 21:00 Labetalol HCl (Normodyne) 20 mg PRN Q2HR PRN IVP HYPERTENSION, SEE COMMENTS; Start 01/21/17 at 10:30 Active Scripts Active [place] 5-325 Tablet (Acetaminophen/Hydrocodone Bitart) 1 Each Tablet 1 Tab PO PRN Q6HRS PRN Reported Proventil Hfa Inhaler (Albuterol Sulfate) 6.7 Gm Hfa.aer.ad 2 Puff IH Q4HRS PRN Lisinopril 20 Mg Tablet 20 Tab PO BID Hydrochlorothiazide Tablet (Hydrochlorothiazide) 12.5 Mg Tablet 1 Tab PO DAILY Glimepiride 1 Mg Tablet 1 Tab PO DAILY Januvia (Sitagliptin Phosphate) 100 Mg Tablet 1 Tab PO DAILY Metformin Hcl 1,000 Mg Tablet 1 Tab PO BID Aspir 81 (Aspirin) 81 Mg Tablet.dr 1 Tab PO DAILY Allergies Allergies: Coded Allergies: No Known Medication Allergies (Verified Allergy, Unknown, 01/21/17) egg (Verified Adverse Reaction, Intermediate, Nausea and Vomiting, 01/21/17 ) ROS Review of System UNABLE TO OBTAIN Physical Exam General: Alert, Cooperative HEENT: Atraumatic, PERRLA Lungs: Clear to auscultation Heart: Regular rate, Normal S1 Abdomen: Soft, No tenderness Skin: No rashes, No breakdown Neuro: Other (CONFUSED) Psych/Mental Status: Other (CONFUSED) MUSCULOSKELETAL: No swelling Vitals VITALS Vital Signs Date Time Temp Pulse Resp B/P Pulse Ox O2 Delivery O2 Flow Rate FiO2 01/21/17 11:00 92 18 144/79 99 Room Air 01/21/17 08:00 98.1 98.1 Labs Labs Laboratory Tests Test 01/20/17 12:32 01/20/17 12:45 01/20/17 13:20 01/20/17 14:05 Glucose (Fingerstick) 157mg/dL (70-99) Urine Collection Type Void Urine Color Yellow Urine Clarity Clear Urine pH 6.0 Urine Specific [place] 1.010 Urine Protein >=300mg/dL (NEG-TRACE) Urine Glucose (UA) 100mg/dL (NEG) Urine Ketones (Stick) Negativemg/dL (NEG) Urine Blood Small (NEG) Urine Nitrite Negative (NEG) Urine Bilirubin Negative (NEG) Urine Urobilinogen Dipstick 0.2mg/dL (0.2 mg/dL) Urine Leukocyte Esterase Trace (NEG) Urine RBC Occ/HPF (0-2) Urine WBC 5-10/HPF (0-4) Urine Squamous Epithelial Cells Mod/LPF Urine Bacteria Few/HPF (0-FEW) Urine Random Creatinine 64.6mg/dL (Not Estab.) Urine Random Total Protein 290.2mg/dL (Not Estab.) White Blood Count 9.1x10^3/uL (4.0-11.0) Red Blood Count 4.17x10^6/uL (3.50-5.40) Hemoglobin 12.0g/dL (12.0-15.5) Hematocrit 36.7% (36.0-47.0) Mean Corpuscular Volume 88fL (79-100) Mean Corpuscular Hemoglobin 29pg (25-35) Mean Corpuscular Hemoglobin Concent 33g/dL (31-37) Red Cell Distribution Width 13.3% (11.5-14.5) Platelet Count 368x10^3/uL (140-400) Neutrophils (%) (Auto) 63% (31-73) Lymphocytes (%) (Auto) 29% (24-48) Monocytes (%) (Auto) 5% (0-9) Eosinophils (%) (Auto) 3% (0-3) Basophils (%) (Auto) 1% (0-3) Neutrophils # (Auto) 5.7x10^3uL (1.8-7.7) Lymphocytes # (Auto) 2.6x10^3/uL (1.0-4.8) Monocytes # (Auto) 0.5x10^3/uL (0.0-1.1) Eosinophils # (Auto) 0.2x10^3/uL (0.0-0.7) Basophils # (Auto) 0.0x10^3/uL (0.0-0.2) Prothrombin Time 13.1SEC (11.7-14.0) Prothromb Time International Ratio 1.1 (0.8-1.1) Activated Partial Thromboplast Time 40SEC (24-38) Sodium Level 140mmol/L (136-145) Potassium Level 3.9mmol/L (3.5-5.1) Chloride Level 104mmol/L (98-107) Carbon Dioxide Level 27mmol/L (21-32) Anion Gap 9 (6-14) Blood Urea Nitrogen 16mg/dL (7-20) Creatinine 1.0mg/dL (0.6-1.0) Estimated GFR (Cockcroft-Gault) 68.9 BUN/Creatinine Ratio 16 (6-20) Glucose Level 155mg/dL (70-99) Calcium Level 8.8mg/dL (8.5-10.1) Magnesium Level 2.0mg/dL (1.8-2.4) Total Bilirubin 0.3mg/dL (0.2-1.0) Aspartate Amino Transf (AST/SGOT) 16U/L (15-37) Alanine Aminotransferase (ALT/SGPT) 18U/L (14-59) Alkaline Phosphatase 142U/L (46-116) Total Protein 7.7g/dL (6.4-8.2) Albumin 2.9g/dL (3.4-5.0) Albumin/Globulin Ratio 0.6 (1.0-1.7) Lipase 79U/L (73-393) Test 01/20/17 17:00 01/21/17 04:15 01/21/17 09:36 Nasal Screen MRSA (PCR) Negative (Negative) White Blood Count 9.5x10^3/uL (4.0-11.0) Red Blood Count 3.98x10^6/uL (3.50-5.40) Hemoglobin 11.5g/dL (12.0-15.5) Hematocrit 34.7% (36.0-47.0) Mean Corpuscular Volume 87fL (79-100) Mean Corpuscular Hemoglobin 29pg (25-35) Mean Corpuscular Hemoglobin Concent 33g/dL (31-37) Red Cell Distribution Width 12.9% (11.5-14.5) Platelet Count 359x10^3/uL (140-400) Neutrophils (%) (Auto) 60% (31-73) Lymphocytes (%) (Auto) 30% (24-48) Monocytes (%) (Auto) 6% (0-9) Eosinophils (%) (Auto) 3% (0-3) Basophils (%) (Auto) 1% (0-3) Neutrophils # (Auto) 5.7x10^3uL (1.8-7.7) Lymphocytes # (Auto) 2.9x10^3/uL (1.0-4.8) Monocytes # (Auto) 0.6x10^3/uL (0.0-1.1) Eosinophils # (Auto) 0.3x10^3/uL (0.0-0.7) Basophils # (Auto) 0.1x10^3/uL (0.0-0.2) Sodium Level 140mmol/L (136-145) Potassium Level 4.3mmol/L (3.5-5.1) Chloride Level 106mmol/L (98-107) Carbon Dioxide Level 21mmol/L (21-32) Anion Gap 13 (6-14) Blood Urea Nitrogen 20mg/dL (7-20) Creatinine 1.1mg/dL (0.6-1.0) Estimated GFR (Cockcroft-Gault) 61.7 Glucose Level 278mg/dL (70-99) Calcium Level 8.4mg/dL (8.5-10.1) Triglycerides Level 87mg/dL (0-150) Cholesterol Level 234mg/dL (0-200) LDL Cholesterol, Calculated 158mg/dL (0-100) VLDL Cholesterol, Calculated 17mg/dL (0-40) Non-HDL Cholesterol Calculated 175mg/dL (0-129) HDL Cholesterol 59mg/dL (40-60) Cholesterol/HDL Ratio 4.0 Thyroid Stimulating Hormone (TSH) 2.833uIU/mL (0.358-3.74) Laboratory Tests Test 01/20/17 12:32 01/20/17 12:45 01/20/17 13:20 01/20/17 14:05 Glucose (Fingerstick) 157mg/dL (70-99) Urine Collection Type Void Urine Color Yellow Urine Clarity Clear Urine pH 6.0 Urine Specific [place] 1.010 Urine Protein >=300mg/dL (NEG-TRACE) Urine Glucose (UA) 100mg/dL (NEG) Urine Ketones (Stick) Negativemg/dL (NEG) Urine Blood Small (NEG) Urine Nitrite Negative (NEG) Urine Bilirubin Negative (NEG) Urine Urobilinogen Dipstick 0.2mg/dL (0.2 mg/dL) Urine Leukocyte Esterase Trace (NEG) Urine RBC Occ/HPF (0-2) Urine WBC 5-10/HPF (0-4) Urine Squamous Epithelial Cells Mod/LPF Urine Bacteria Few/HPF (0-FEW) Urine Random Creatinine 64.6mg/dL (Not Estab.) Urine Random Total Protein 290.2mg/dL (Not Estab.) White Blood Count 9.1x10^3/uL (4.0-11.0) Red Blood Count 4.17x10^6/uL (3.50-5.40) Hemoglobin 12.0g/dL (12.0-15.5) Hematocrit 36.7% (36.0-47.0) Mean Corpuscular Volume 88fL (79-100) Mean Corpuscular Hemoglobin 29pg (25-35) Mean Corpuscular Hemoglobin Concent 33g/dL (31-37) Red Cell Distribution Width 13.3% (11.5-14.5) Platelet Count 368x10^3/uL (140-400) Neutrophils (%) (Auto) 63% (31-73) Lymphocytes (%) (Auto) 29% (24-48) Monocytes (%) (Auto) 5% (0-9) Eosinophils (%) (Auto) 3% (0-3) Basophils (%) (Auto) 1% (0-3) Neutrophils # (Auto) 5.7x10^3uL (1.8-7.7) Lymphocytes # (Auto) 2.6x10^3/uL (1.0-4.8) Monocytes # (Auto) 0.5x10^3/uL (0.0-1.1) Eosinophils # (Auto) 0.2x10^3/uL (0.0-0.7) Basophils # (Auto) 0.0x10^3/uL (0.0-0.2) Prothrombin Time 13.1SEC (11.7-14.0) Prothromb Time International Ratio 1.1 (0.8-1.1) Activated Partial Thromboplast Time 40SEC (24-38) Sodium Level 140mmol/L (136-145) Potassium Level 3.9mmol/L (3.5-5.1) Chloride Level 104mmol/L (98-107) Carbon Dioxide Level 27mmol/L (21-32) Anion Gap 9 (6-14) Blood Urea Nitrogen 16mg/dL (7-20) Creatinine 1.0mg/dL (0.6-1.0) Estimated GFR (Cockcroft-Gault) 68.9 BUN/Creatinine Ratio 16 (6-20) Glucose Level 155mg/dL (70-99) Calcium Level 8.8mg/dL (8.5-10.1) Magnesium Level 2.0mg/dL (1.8-2.4) Total Bilirubin 0.3mg/dL (0.2-1.0) Aspartate Amino Transf (AST/SGOT) 16U/L (15-37) Alanine Aminotransferase (ALT/SGPT) 18U/L (14-59) Alkaline Phosphatase 142U/L (46-116) Total Protein 7.7g/dL (6.4-8.2) Albumin 2.9g/dL (3.4-5.0) Albumin/Globulin Ratio 0.6 (1.0-1.7) Lipase 79U/L (73-393) Test 01/20/17 17:00 01/21/17 04:15 01/21/17 09:36 Nasal Screen MRSA (PCR) Negative (Negative) White Blood Count 9.5x10^3/uL (4.0-11.0) Red Blood Count 3.98x10^6/uL (3.50-5.40) Hemoglobin 11.5g/dL (12.0-15.5) Hematocrit 34.7% (36.0-47.0) Mean Corpuscular Volume 87fL (79-100) Mean Corpuscular Hemoglobin 29pg (25-35) Mean Corpuscular Hemoglobin Concent 33g/dL (31-37) Red Cell Distribution Width 12.9% (11.5-14.5) Platelet Count 359x10^3/uL (140-400) Neutrophils (%) (Auto) 60% (31-73) Lymphocytes (%) (Auto) 30% (24-48) Monocytes (%) (Auto) 6% (0-9) Eosinophils (%) (Auto) 3% (0-3) Basophils (%) (Auto) 1% (0-3) Neutrophils # (Auto) 5.7x10^3uL (1.8-7.7) Lymphocytes # (Auto) 2.9x10^3/uL (1.0-4.8) Monocytes # (Auto) 0.6x10^3/uL (0.0-1.1) Eosinophils # (Auto) 0.3x10^3/uL (0.0-0.7) Basophils # (Auto) 0.1x10^3/uL (0.0-0.2) Sodium Level 140mmol/L (136-145) Potassium Level 4.3mmol/L (3.5-5.1) Chloride Level 106mmol/L (98-107) Carbon Dioxide Level 21mmol/L (21-32) Anion Gap 13 (6-14) Blood Urea Nitrogen 20mg/dL (7-20) Creatinine 1.1mg/dL (0.6-1.0) Estimated GFR (Cockcroft-Gault) 61.7 Glucose Level 278mg/dL (70-99) Calcium Level 8.4mg/dL (8.5-10.1) Triglycerides Level 87mg/dL (0-150) Cholesterol Level 234mg/dL (0-200) LDL Cholesterol, Calculated 158mg/dL (0-100) VLDL Cholesterol, Calculated 17mg/dL (0-40) Non-HDL Cholesterol Calculated 175mg/dL (0-129) HDL Cholesterol 59mg/dL (40-60) Cholesterol/HDL Ratio 4.0 Thyroid Stimulating Hormone (TSH) 2.833uIU/mL (0.358-3.74) Assessment/Plan Assessment/Plan IMP HTN RELATED ENCEPHALOPATHY HTN EMERGENCY PROTEINURIA NON COMPLIANCE DM II PLAN CARDENE GTT NEEDED CONT LISINOPRIL ENC COMPLIANCE OP F/U WITH RENAL AT D/C WILL DO 24 HR URINE STUDY OP WILL FOLLOW HAIM RAJAN MD Jan 21, 2017 11:29
--- NOTE | 2017-01-21 12:08 | PDOC ---
PROGRESS NOTES Chief Complaint Chief Complaint 1. Malignant HTN 2. Hypertensive encephalopathy 3. DM2 4. HLP 5. Morbid obesity: BMI 46 6. CKD 2 7. mild malnutrition plan: 1. fu with renal, card 2. on lisinopril, hctz add coreg as per card, taper cardene 3. lipitor 4. SSI DVT PPX labs tmr \ok to transfer out of icu if off cardene drip History of Present Illness History of Present Illness not seeing PCP for 1 year, missed meds 2 days no confusion or neurologic deficit Vitals Vitals Vital Signs Date Time Temp Pulse Resp B/P Pulse Ox O2 Delivery O2 Flow Rate FiO2 01/21/17 11:26 94 151/68 01/21/17 11:00 18 99 Room Air 01/21/17 08:00 98.1 98.1 Physical Exam General: Alert, Cooperative Heart: Regular rate, Normal S1 Lungs: Clear Abdomen: Soft, No tenderness Extremities: No cyanosis, Other (trace to 1+ bilateral LE pitting edema) Skin: No rashes, No breakdown Labs LABS Laboratory Tests Test 01/20/17 12:32 01/20/17 12:45 01/20/17 13:20 01/20/17 14:05 Glucose (Fingerstick) 157mg/dL (70-99) Urine Collection Type Void Urine Color Yellow Urine Clarity Clear Urine pH 6.0 Urine Specific [place] 1.010 Urine Protein >=300mg/dL (NEG-TRACE) Urine Glucose (UA) 100mg/dL (NEG) Urine Ketones (Stick) Negativemg/dL (NEG) Urine Blood Small (NEG) Urine Nitrite Negative (NEG) Urine Bilirubin Negative (NEG) Urine Urobilinogen Dipstick 0.2mg/dL (0.2 mg/dL) Urine Leukocyte Esterase Trace (NEG) Urine RBC Occ/HPF (0-2) Urine WBC 5-10/HPF (0-4) Urine Squamous Epithelial Cells Mod/LPF Urine Bacteria Few/HPF (0-FEW) Urine Random Creatinine 64.6mg/dL (Not Estab.) Urine Random Total Protein 290.2mg/dL (Not Estab.) White Blood Count 9.1x10^3/uL (4.0-11.0) Red Blood Count 4.17x10^6/uL (3.50-5.40) Hemoglobin 12.0g/dL (12.0-15.5) Hematocrit 36.7% (36.0-47.0) Mean Corpuscular Volume 88fL (79-100) Mean Corpuscular Hemoglobin 29pg (25-35) Mean Corpuscular Hemoglobin Concent 33g/dL (31-37) Red Cell Distribution Width 13.3% (11.5-14.5) Platelet Count 368x10^3/uL (140-400) Neutrophils (%) (Auto) 63% (31-73) Lymphocytes (%) (Auto) 29% (24-48) Monocytes (%) (Auto) 5% (0-9) Eosinophils (%) (Auto) 3% (0-3) Basophils (%) (Auto) 1% (0-3) Neutrophils # (Auto) 5.7x10^3uL (1.8-7.7) Lymphocytes # (Auto) 2.6x10^3/uL (1.0-4.8) Monocytes # (Auto) 0.5x10^3/uL (0.0-1.1) Eosinophils # (Auto) 0.2x10^3/uL (0.0-0.7) Basophils # (Auto) 0.0x10^3/uL (0.0-0.2) Prothrombin Time 13.1SEC (11.7-14.0) Prothromb Time International Ratio 1.1 (0.8-1.1) Activated Partial Thromboplast Time 40SEC (24-38) Sodium Level 140mmol/L (136-145) Potassium Level 3.9mmol/L (3.5-5.1) Chloride Level 104mmol/L (98-107) Carbon Dioxide Level 27mmol/L (21-32) Anion Gap 9 (6-14) Blood Urea Nitrogen 16mg/dL (7-20) Creatinine 1.0mg/dL (0.6-1.0) Estimated GFR (Cockcroft-Gault) 68.9 BUN/Creatinine Ratio 16 (6-20) Glucose Level 155mg/dL (70-99) Calcium Level 8.8mg/dL (8.5-10.1) Magnesium Level 2.0mg/dL (1.8-2.4) Total Bilirubin 0.3mg/dL (0.2-1.0) Aspartate Amino Transf (AST/SGOT) 16U/L (15-37) Alanine Aminotransferase (ALT/SGPT) 18U/L (14-59) Alkaline Phosphatase 142U/L (46-116) Total Protein 7.7g/dL (6.4-8.2) Albumin 2.9g/dL (3.4-5.0) Albumin/Globulin Ratio 0.6 (1.0-1.7) Lipase 79U/L (73-393) Test 01/20/17 17:00 01/21/17 04:15 01/21/17 09:36 Nasal Screen MRSA (PCR) Negative (Negative) White Blood Count 9.5x10^3/uL (4.0-11.0) Red Blood Count 3.98x10^6/uL (3.50-5.40) Hemoglobin 11.5g/dL (12.0-15.5) Hematocrit 34.7% (36.0-47.0) Mean Corpuscular Volume 87fL (79-100) Mean Corpuscular Hemoglobin 29pg (25-35) Mean Corpuscular Hemoglobin Concent 33g/dL (31-37) Red Cell Distribution Width 12.9% (11.5-14.5) Platelet Count 359x10^3/uL (140-400) Neutrophils (%) (Auto) 60% (31-73) Lymphocytes (%) (Auto) 30% (24-48) Monocytes (%) (Auto) 6% (0-9) Eosinophils (%) (Auto) 3% (0-3) Basophils (%) (Auto) 1% (0-3) Neutrophils # (Auto) 5.7x10^3uL (1.8-7.7) Lymphocytes # (Auto) 2.9x10^3/uL (1.0-4.8) Monocytes # (Auto) 0.6x10^3/uL (0.0-1.1) Eosinophils # (Auto) 0.3x10^3/uL (0.0-0.7) Basophils # (Auto) 0.1x10^3/uL (0.0-0.2) Sodium Level 140mmol/L (136-145) Potassium Level 4.3mmol/L (3.5-5.1) Chloride Level 106mmol/L (98-107) Carbon Dioxide Level 21mmol/L (21-32) Anion Gap 13 (6-14) Blood Urea Nitrogen 20mg/dL (7-20) Creatinine 1.1mg/dL (0.6-1.0) Estimated GFR (Cockcroft-Gault) 61.7 Glucose Level 278mg/dL (70-99) Calcium Level 8.4mg/dL (8.5-10.1) Triglycerides Level 87mg/dL (0-150) Cholesterol Level 234mg/dL (0-200) LDL Cholesterol, Calculated 158mg/dL (0-100) VLDL Cholesterol, Calculated 17mg/dL (0-40) Non-HDL Cholesterol Calculated 175mg/dL (0-129) HDL Cholesterol 59mg/dL (40-60) Cholesterol/HDL Ratio 4.0 Thyroid Stimulating Hormone (TSH) 2.833uIU/mL (0.358-3.74) Review of Systems Review of Systems no fever, chills, sob or chest pain Assessment and Plan Assessmemt and Plan Problems Medical Problems: (1) Hypertensive encephalopathy Status: Acute (2) Moderate protein malnutrition Status: Acute Problems: Comment Review of Relevant I have reviewed the following items anne-marie (where applicable) has been applied. Labs Laboratory Tests Test 01/20/17 12:32 01/20/17 12:45 01/20/17 13:20 01/20/17 14:05 Glucose (Fingerstick) 157mg/dL (70-99) Urine Collection Type Void Urine Color Yellow Urine Clarity Clear Urine pH 6.0 Urine Specific [place] 1.010 Urine Protein >=300mg/dL (NEG-TRACE) Urine Glucose (UA) 100mg/dL (NEG) Urine Ketones (Stick) Negativemg/dL (NEG) Urine Blood Small (NEG) Urine Nitrite Negative (NEG) Urine Bilirubin Negative (NEG) Urine Urobilinogen Dipstick 0.2mg/dL (0.2 mg/dL) Urine Leukocyte Esterase Trace (NEG) Urine RBC Occ/HPF (0-2) Urine WBC 5-10/HPF (0-4) Urine Squamous Epithelial Cells Mod/LPF Urine Bacteria Few/HPF (0-FEW) Urine Random Creatinine 64.6mg/dL (Not Estab.) Urine Random Total Protein 290.2mg/dL (Not Estab.) White Blood Count 9.1x10^3/uL (4.0-11.0) Red Blood Count 4.17x10^6/uL (3.50-5.40) Hemoglobin 12.0g/dL (12.0-15.5) Hematocrit 36.7% (36.0-47.0) Mean Corpuscular Volume 88fL (79-100) Mean Corpuscular Hemoglobin 29pg (25-35) Mean Corpuscular Hemoglobin Concent 33g/dL (31-37) Red Cell Distribution Width 13.3% (11.5-14.5) Platelet Count 368x10^3/uL (140-400) Neutrophils (%) (Auto) 63% (31-73) Lymphocytes (%) (Auto) 29% (24-48) Monocytes (%) (Auto) 5% (0-9) Eosinophils (%) (Auto) 3% (0-3) Basophils (%) (Auto) 1% (0-3) Neutrophils # (Auto) 5.7x10^3uL (1.8-7.7) Lymphocytes # (Auto) 2.6x10^3/uL (1.0-4.8) Monocytes # (Auto) 0.5x10^3/uL (0.0-1.1) Eosinophils # (Auto) 0.2x10^3/uL (0.0-0.7) Basophils # (Auto) 0.0x10^3/uL (0.0-0.2) Prothrombin Time 13.1SEC (11.7-14.0) Prothromb Time International Ratio 1.1 (0.8-1.1) Activated Partial Thromboplast Time 40SEC (24-38) Sodium Level 140mmol/L (136-145) Potassium Level 3.9mmol/L (3.5-5.1) Chloride Level 104mmol/L (98-107) Carbon Dioxide Level 27mmol/L (21-32) Anion Gap 9 (6-14) Blood Urea Nitrogen 16mg/dL (7-20) Creatinine 1.0mg/dL (0.6-1.0) Estimated GFR (Cockcroft-Gault) 68.9 BUN/Creatinine Ratio 16 (6-20) Glucose Level 155mg/dL (70-99) Calcium Level 8.8mg/dL (8.5-10.1) Magnesium Level 2.0mg/dL (1.8-2.4) Total Bilirubin 0.3mg/dL (0.2-1.0) Aspartate Amino Transf (AST/SGOT) 16U/L (15-37) Alanine Aminotransferase (ALT/SGPT) 18U/L (14-59) Alkaline Phosphatase 142U/L (46-116) Total Protein 7.7g/dL (6.4-8.2) Albumin 2.9g/dL (3.4-5.0) Albumin/Globulin Ratio 0.6 (1.0-1.7) Lipase 79U/L (73-393) Test 01/20/17 17:00 01/21/17 04:15 01/21/17 09:36 Nasal Screen MRSA (PCR) Negative (Negative) White Blood Count 9.5x10^3/uL (4.0-11.0) Red Blood Count 3.98x10^6/uL (3.50-5.40) Hemoglobin 11.5g/dL (12.0-15.5) Hematocrit 34.7% (36.0-47.0) Mean Corpuscular Volume 87fL (79-100) Mean Corpuscular Hemoglobin 29pg (25-35) Mean Corpuscular Hemoglobin Concent 33g/dL (31-37) Red Cell Distribution Width 12.9% (11.5-14.5) Platelet Count 359x10^3/uL (140-400) Neutrophils (%) (Auto) 60% (31-73) Lymphocytes (%) (Auto) 30% (24-48) Monocytes (%) (Auto) 6% (0-9) Eosinophils (%) (Auto) 3% (0-3) Basophils (%) (Auto) 1% (0-3) Neutrophils # (Auto) 5.7x10^3uL (1.8-7.7) Lymphocytes # (Auto) 2.9x10^3/uL (1.0-4.8) Monocytes # (Auto) 0.6x10^3/uL (0.0-1.1) Eosinophils # (Auto) 0.3x10^3/uL (0.0-0.7) Basophils # (Auto) 0.1x10^3/uL (0.0-0.2) Sodium Level 140mmol/L (136-145) Potassium Level 4.3mmol/L (3.5-5.1) Chloride Level 106mmol/L (98-107) Carbon Dioxide Level 21mmol/L (21-32) Anion Gap 13 (6-14) Blood Urea Nitrogen 20mg/dL (7-20) Creatinine 1.1mg/dL (0.6-1.0) Estimated GFR (Cockcroft-Gault) 61.7 Glucose Level 278mg/dL (70-99) Calcium Level 8.4mg/dL (8.5-10.1) Triglycerides Level 87mg/dL (0-150) Cholesterol Level 234mg/dL (0-200) LDL Cholesterol, Calculated 158mg/dL (0-100) VLDL Cholesterol, Calculated 17mg/dL (0-40) Non-HDL Cholesterol Calculated 175mg/dL (0-129) HDL Cholesterol 59mg/dL (40-60) Cholesterol/HDL Ratio 4.0 Thyroid Stimulating Hormone (TSH) 2.833uIU/mL (0.358-3.74) Laboratory Tests Test 01/20/17 12:32 01/20/17 12:45 01/20/17 13:20 01/20/17 14:05 Glucose (Fingerstick) 157mg/dL (70-99) Urine Collection Type Void Urine Color Yellow Urine Clarity Clear Urine pH 6.0 Urine Specific [place] 1.010 Urine Protein >=300mg/dL (NEG-TRACE) Urine Glucose (UA) 100mg/dL (NEG) Urine Ketones (Stick) Negativemg/dL (NEG) Urine Blood Small (NEG) Urine Nitrite Negative (NEG) Urine Bilirubin Negative (NEG) Urine Urobilinogen Dipstick 0.2mg/dL (0.2 mg/dL) Urine Leukocyte Esterase Trace (NEG) Urine RBC Occ/HPF (0-2) Urine WBC 5-10/HPF (0-4) Urine Squamous Epithelial Cells Mod/LPF Urine Bacteria Few/HPF (0-FEW) Urine Random Creatinine 64.6mg/dL (Not Estab.) Urine Random Total Protein 290.2mg/dL (Not Estab.) White Blood Count 9.1x10^3/uL (4.0-11.0) Red Blood Count 4.17x10^6/uL (3.50-5.40) Hemoglobin 12.0g/dL (12.0-15.5) Hematocrit 36.7% (36.0-47.0) Mean Corpuscular Volume 88fL (79-100) Mean Corpuscular Hemoglobin 29pg (25-35) Mean Corpuscular Hemoglobin Concent 33g/dL (31-37) Red Cell Distribution Width 13.3% (11.5-14.5) Platelet Count 368x10^3/uL (140-400) Neutrophils (%) (Auto) 63% (31-73) Lymphocytes (%) (Auto) 29% (24-48) Monocytes (%) (Auto) 5% (0-9) Eosinophils (%) (Auto) 3% (0-3) Basophils (%) (Auto) 1% (0-3) Neutrophils # (Auto) 5.7x10^3uL (1.8-7.7) Lymphocytes # (Auto) 2.6x10^3/uL (1.0-4.8) Monocytes # (Auto) 0.5x10^3/uL (0.0-1.1) Eosinophils # (Auto) 0.2x10^3/uL (0.0-0.7) Basophils # (Auto) 0.0x10^3/uL (0.0-0.2) Prothrombin Time 13.1SEC (11.7-14.0) Prothromb Time International Ratio 1.1 (0.8-1.1) Activated Partial Thromboplast Time 40SEC (24-38) Sodium Level 140mmol/L (136-145) Potassium Level 3.9mmol/L (3.5-5.1) Chloride Level 104mmol/L (98-107) Carbon Dioxide Level 27mmol/L (21-32) Anion Gap 9 (6-14) Blood Urea Nitrogen 16mg/dL (7-20) Creatinine 1.0mg/dL (0.6-1.0) Estimated GFR (Cockcroft-Gault) 68.9 BUN/Creatinine Ratio 16 (6-20) Glucose Level 155mg/dL (70-99) Calcium Level 8.8mg/dL (8.5-10.1) Magnesium Level 2.0mg/dL (1.8-2.4) Total Bilirubin 0.3mg/dL (0.2-1.0) Aspartate Amino Transf (AST/SGOT) 16U/L (15-37) Alanine Aminotransferase (ALT/SGPT) 18U/L (14-59) Alkaline Phosphatase 142U/L (46-116) Total Protein 7.7g/dL (6.4-8.2) Albumin 2.9g/dL (3.4-5.0) Albumin/Globulin Ratio 0.6 (1.0-1.7) Lipase 79U/L (73-393) Test 01/20/17 17:00 01/21/17 04:15 01/21/17 09:36 Nasal Screen MRSA (PCR) Negative (Negative) White Blood Count 9.5x10^3/uL (4.0-11.0) Red Blood Count 3.98x10^6/uL (3.50-5.40) Hemoglobin 11.5g/dL (12.0-15.5) Hematocrit 34.7% (36.0-47.0) Mean Corpuscular Volume 87fL (79-100) Mean Corpuscular Hemoglobin 29pg (25-35) Mean Corpuscular Hemoglobin Concent 33g/dL (31-37) Red Cell Distribution Width 12.9% (11.5-14.5) Platelet Count 359x10^3/uL (140-400) Neutrophils (%) (Auto) 60% (31-73) Lymphocytes (%) (Auto) 30% (24-48) Monocytes (%) (Auto) 6% (0-9) Eosinophils (%) (Auto) 3% (0-3) Basophils (%) (Auto) 1% (0-3) Neutrophils # (Auto) 5.7x10^3uL (1.8-7.7) Lymphocytes # (Auto) 2.9x10^3/uL (1.0-4.8) Monocytes # (Auto) 0.6x10^3/uL (0.0-1.1) Eosinophils # (Auto) 0.3x10^3/uL (0.0-0.7) Basophils # (Auto) 0.1x10^3/uL (0.0-0.2) Sodium Level 140mmol/L (136-145) Potassium Level 4.3mmol/L (3.5-5.1) Chloride Level 106mmol/L (98-107) Carbon Dioxide Level 21mmol/L (21-32) Anion Gap 13 (6-14) Blood Urea Nitrogen 20mg/dL (7-20) Creatinine 1.1mg/dL (0.6-1.0) Estimated GFR (Cockcroft-Gault) 61.7 Glucose Level 278mg/dL (70-99) Calcium Level 8.4mg/dL (8.5-10.1) Triglycerides Level 87mg/dL (0-150) Cholesterol Level 234mg/dL (0-200) LDL Cholesterol, Calculated 158mg/dL (0-100) VLDL Cholesterol, Calculated 17mg/dL (0-40) Non-HDL Cholesterol Calculated 175mg/dL (0-129) HDL Cholesterol 59mg/dL (40-60) Cholesterol/HDL Ratio 4.0 Thyroid Stimulating Hormone (TSH) 2.833uIU/mL (0.358-3.74) Medications Current Medications Sodium Chloride 1,000 ml @ 100 mls/hr Q10H IV Last administered on 01/20/17 13:27; Start 01/20/17 at 12:57; Stop 01/20/17 at 18:40; Status DC Nicardipine HCl/ Sodium Chloride (Cardene/Iv Sodium Chloride 0.9% 250ml) 270 ml @ 0 mls/hr CONT PRN IV SEE I/O RECORD Last administered on 01/21/17 07:08; Start 01/20/17 at 13:00; Stop 01/21/17 at 10:21; Status DC Ondansetron HCl (Zofran) 4 mg PRN Q8HRS PRN IV NAUSEA/VOMITING; Start 01/20/17 at 16:45; Stop 01/21/17 at 16:44 Fentanyl Citrate 50 mcg 50 mcg PRN Q2HR PRN IV PAIN; Start 01/20/17 at 16:45; Stop 01/21/17 at 16:44 Sodium Chloride (Iv Sodium Chloride 0.9% 1000ml Bag) 1,000 ml @ 100 mls/hr Q10H IV Last administered on 01/20/17 16:36; Start 01/20/17 at 16:36; Stop at 18:40; Status DC Acetaminophen (Tylenol) 650 mg PRN Q4HRS PRN PO FEVER Last administered on 01/20 20:16; Start 01/20/17 at 16:45; Stop 01/21/17 at 16:44 Aspirin (Ecotrin) 81 mg DAILYWBKFT PO Last administered on 01/21/17 08:31; Start 01/21/17 at 08:00 Acetaminophen/ Hydrocodone Bitart (Lortab 5/325) 1 tab PRN Q6HRS PRN PO PAIN; Start 01/20/17 at 17:30 Lisinopril (Prinivil) 20 mg BID PO Last administered on 01/21/17 08:32; Start 01/20/17 at 21:00 Metformin HCl (Glucophage) 850 mg BIDWMEALS PO Last administered on 01/21/17 09:02; Start 01/20/17 at 18:00 Non-Formulary Medication 2 puff Q4HRS PRN IH SHORTNESS OF BREATH; Start at 17:30; Status UNV Glimepiride (Amaryl) 1 mg DAILYWBKFT PO Last administered on 01/21/17 08:32; Start 01/21/17 at 08:00 Hydrochlorothiazide (Microzide) 12.5 mg DAILY PO Last administered on 08:31; Start 01/21/17 at 09:00 Linagliptin (Tradjenta) 5 mg DAILY PO Last administered on 01/21/17 08:31; Start 01/21/17 at 09:00 Albuterol Sulfate (Ventolin Neb Soln) 2.5 mg PRN Q4HRS PRN NEB SHORTNESS OF BREATH; Start 01/20/17 at 17:45 Carvedilol (Coreg) 6.25 mg BIDWMEALS PO Last administered on 01/21/17 11:26; Start 01/21/17 at 11:00 Atorvastatin Calcium (Lipitor) 40 mg QHS PO ; Start 01/21/17 at 21:00 Labetalol HCl (Normodyne) 20 mg PRN Q2HR PRN IVP HYPERTENSION, SEE COMMENTS; Start 01/21/17 at 10:30 Active Scripts Active [place] 5-325 Tablet (Acetaminophen/Hydrocodone Bitart) 1 Each Tablet 1 Tab PO PRN Q6HRS PRN Reported Proventil Hfa Inhaler (Albuterol Sulfate) 6.7 Gm Hfa.aer.ad 2 Puff IH Q4HRS PRN Lisinopril 20 Mg Tablet 20 Tab PO BID Hydrochlorothiazide Tablet (Hydrochlorothiazide) 12.5 Mg Tablet 1 Tab PO DAILY Glimepiride 1 Mg Tablet 1 Tab PO DAILY Januvia (Sitagliptin Phosphate) 100 Mg Tablet 1 Tab PO DAILY Metformin Hcl 1,000 Mg Tablet 1 Tab PO BID Aspir 81 (Aspirin) 81 Mg Tablet. 1 Tab PO DAILY Vitals/I & O Vital Sign - Last 24 Hours 01/20/17 01/20/17 01/20/17 01/20/17 12:30 13:32 13:52 14:22 Temp 97.8 97.8 Pulse 78 68 76 76 Resp 20 20 20 20 B/P 239/114 183/84 195/89 203/100 Pulse Ox 99 100 99 98 O2 Delivery Room Air Room Air 01/20/17 01/20/17 01/20/17 01/20/17 14:52 15:22 15:44 15:54 Pulse 78 80 76 90 Resp 20 20 31 16 B/P 190/91 194/93 209/91 183/70 Pulse Ox 98 98 100 100 O2 Delivery Room Air Room Air Room Air Room Air 01/20/17 01/20/17 01/20/17 01/20/17 16:09 16:29 16:45 17:30 Pulse 92 90 86 Resp 17 18 18 B/P 199/81 183/70 163/74 Pulse Ox 99 98 97 O2 Delivery Room Air Room Air Room Air Room Air 01/20/17 01/20/17 01/20/17 01/20/17 17:52 18:00 19:00 20:00 Temp 98.2 97.9 98.2 97.9 Pulse 90 90 94 Resp 18 17 18 B/P 149/90 157/83 157/79 Pulse Ox 100 97 98 O2 Delivery Room Air Room Air Room Air Room Air 01/20/17 01/20/17 01/20/17 01/20/17 20:00 20:05 20:15 21:00 Pulse 98 98 100 Resp 20 18 B/P 145/78 171/84 145/67 Pulse Ox 99 100 98 O2 Delivery Room Air Room Air 01/20/17 01/20/17 01/21/17 4/22/17 22:00 23:00 00:00 00:00 Temp 98.5 98.5 Pulse 114 89 86 Resp 18 B/P 146/68 120/70 118/65 Pulse Ox 97 94 94 O2 Delivery Room Air Room Air Room Air Room Air 01/21/17 01/21/17 01/21/17 01/21/17 01:00 02:00 03:00 04:00 Temp 98.5 98.5 Pulse 84 80 80 92 Resp 17 B/P 129/69 116/62 114/61 126/64 Pulse Ox 98 98 98 99 O2 Delivery Room Air Room Air Room Air Room Air 01/21/17 01/21/17 01/21/17 01/21/17 04:00 05:00 06:00 07:00 Pulse 85 75 78 Resp 15 B/P 150/82 141/73 147/75 Pulse Ox 96 97 95 O2 Delivery Room Air Room Air Room Air Room Air 01/21/17 01/21/17 01/21/17 01/21/17 08:00 08:00 08:32 09:00 Temp 98.1 98.1 Pulse 88 90 94 Resp 16 B/P 136/74 140/72 148/75 Pulse Ox 100 97 O2 Delivery Room Air Room Air Room Air 01/21/17 01/21/17 01/21/17 10:00 11:00 11:26 Pulse 98 92 94 Resp 18 B/P 153/76 144/79 151/68 Pulse Ox 99 99 O2 Delivery Room Air Room Air Intake and Output 01/20/17 01/20/17 01/21/17 15:00 23:00 07:00 Intake Total 220 ml 793 ml Balance 220 ml 793 ml JERSON ALEJO MD Jan 21, 2017 12:07
[2017-01-21] MEDS ORDERED: ONDANSETRON PF 4 MG/2 ML VIAL. IV PRN (12:15)
[2017-01-21] MEDS ORDERED: ACETAMINOPHEN 325 MG TABLET. PO PRN (12:15)
[2017-01-21] MEDS ORDERED: DEXTROSE 50% 25 GM / 50ML DISP.SYRIN. IV PRN (12:15)
[2017-01-21] MEDS: INSULIN ASPART 300 UNITS/3 ML INSULN.PEN SQ SCH ×2 (13:00→17:37)
[2017-01-21] MEDS ORDERED: ENOXAPARIN 40 MG/0.4 ML SYRINGE. SQ SCH (13:00)
[2017-01-21] MEDS ORDERED: ATORVASTATIN CALCIUM 40 MG TABLET. PO SCH (21:00)
[2017-01-22 03:25] VITALS: BP_SYST 118; BP_SYST 128; BP_DIAS 51; BP_DIAS 61
[2017-01-22 06:56] LABS: BASO # 0.1 x10^3/uL (0.0-0.2); BASO % 1 % (0-3); EOS % 3 % (0-3); HEMATOCRIT 33.3 % (36.0-47.0); HEMOGLOBIN 10.9 g/dL (12.0-15.5); LYMPH % 24 % (24-48); MEAN CORPUSCULAR HEMOGLOBIN 29 pg (25-35); MEAN CORPUSCULAR HGB CONC 33 g/dL (31-37); MEAN CORPUSCULAR VOLUME 87 fL (79-100); MONO % 6 % (0-9); NEUT % 67 % (31-73); PLATELET COUNT 348 x10^3/uL (140-400); RED BLOOD COUNT 3.82 x10^6/uL (3.50-5.40); WHITE BLOOD COUNT 12.5 x10^3/uL (4.0-11.0)
[2017-01-22 07:00] VITALS: BP 134/81
[2017-01-22 07:06] LABS: CALCIUM 8.5 mg/dL (8.5-10.1); GFR 68.9; POTASSIUM 3.8 mmol/L (3.5-5.1)
[2017-01-22] MEDS: INSULIN ASPART 300 UNITS/3 ML INSULN.PEN SQ SCH (08:00)
[2017-01-22] MEDS: ASPIRIN ENTERIC COATED 81 MG TABLET.DR. PO SCH (08:39)
[2017-01-22] MEDS: LINAGLIPTIN 5 MG TABLET PO SCH (08:39)
[2017-01-22] MEDS: CARVEDILOL 6.25 MG TABLET. PO SCH (08:39)
[2017-01-22] MEDS: METFORMIN 850 MG TABLET PO SCH (08:39)
[2017-01-22] MEDS: LISINOPRIL 20 MG TABLET PO SCH (08:39)
[2017-01-22] MEDS: HYDROCHLOROTHIAZIDE 12.5 MG CAPSULE. PO SCH (08:39)
[2017-01-22] MEDS: GLIMEPIRIDE 2 MG TABLET. PO SCH (08:39)
[2017-01-22 11:00] VITALS: BP 150/91
[2017-01-22] MEDS ORDERED: ATOR40TA59 PO (11:51)
[2017-01-22] MEDS ORDERED: CARV6.252 PO (11:51)
--- NOTE | 2017-01-22 12:35 | PDOC3 ---
Discharge Summary [facility] Date of Admission: Jan 20, 2017 Discharge Date: Jan 22, 2017 Admitting Diagnosis 1. Malignant HTN 2. Hypertensive encephalopathy 3. DM2 4. HLP 5. Morbid obesity: BMI 46 6. CKD 2 7. mild malnutrition Problems: Final Diagnosis CONSULTS card renal Brief Hospital Course 48yo F, HTN, dm2, NOT Following with pcp for 1 year, but cont getting same HTN meds as lisinopril and hctz, missed 2 days of meds, came for confusion. BP was found high. CT head neg. PT was in ICU for cardene drip. BP better with adding coreg. dc home with coreg, lisinopril, hctz dc time 35min General: Alert, Cooperative Heart: Regular rate, Normal S1 Lungs: Clear Abdomen: Soft, No tenderness Extremities: No cyanosis, Other (trace to 1+ bilateral LE pitting edema) Skin: No rashes, No breakdown Problems: Disposition home CONDITION AT DISCHARGE: Improved Diet cardiac Scheduled Aspirin (Aspir 81) 1 TAB PO DAILY (Reported) Atorvastatin Calcium (Atorvastatin Calcium) 40 MG PO QHS Carvedilol (Carvedilol) 6.25 MG PO BIDWMEALS Glimepiride (Glimepiride) 1 TAB PO DAILY (Reported) Hydrochlorothiazide (Hydrochlorothiazide Tablet) 1 TAB PO DAILY (Reported) Lisinopril (Lisinopril) 20 TAB PO BID (Reported) Metformin Hcl (Metformin Hcl) 1 TAB PO BID (Reported) Sitagliptin Phosphate (Januvia) 1 TAB PO DAILY (Reported) Scheduled PRN Albuterol Sulfate (Proventil Hfa Inhaler) 2 PUFF IH Q4HRS PRN PRN SHORTNESS OF BREATH (Reported) Hydrocodone/Apap 5-325 ([place] 5-325 Tablet) 1 TAB PO PRN Q6HRS PRN PRN PAIN Follow Up pcp in 2 weeks JESRON ALEJO MD Jan 22, 2017 12:35
--- NOTE | 2017-01-22 14:12 | CARD ---
APPROVED REPORT EXAM: Two-dimensional and M-mode echocardiogram with Doppler and color Doppler. Other Information Quality : Good INDICATION Hypertension/HCVD 2D DIMENSIONS RVDd3.2 (2.9-3.5cm)Left Atrium(2D)4.4 (1.6-4.0cm) IVSd1.4 (0.7-1.1cm)Aortic Root(2D)2.7 (2.0-3.7cm) LVDd3.8 (3.9-5.9cm)LVOT Diameter2.0 (1.8-2.4cm) PWd1.3 (0.7-1.1cm)LVDs2.7 (2.5-4.0cm) FS (%) 29.9 %SV35.9 ml LVEF(%)57.9 (>50%) Aortic Valve AoV Peak Guzman.188.8cm/sAoV VTI30.8cm AO Peak GR.14.3mmHgLVOT VTI 21.67cm AO Mean GR.7mmHgAVA (VTI)2.30cm2 Mitral Valve MV E Mrzkatdc63.6cm/sMV DECEL [id number] MV A Hrpexvvs613.0cm/sE/A Ratio0.9 TDI Lateral E' P. V5.66cm/sMedial E' P. V4.12cm/s E/Lateral E'16.0E/Medial E'22.0 Tricuspid Valve TR P. Rwpyfkfv824tw/sRAP [id number] TR Peak Gr.11yoPvJRGW26nrOl Pulmonary Vein S1 Xvyidxta35.8cm/sS2 Wghrozws81.75cm/s D2 Cfyhriml62.7cm/s LEFT VENTRICLE The left ventricle is normal size. There is mild concentric left ventricular hypertrophy. The left ve ntricular systolic function is normal and the ejection fraction is within normal range. The Ejection Fraction is 55-60%. There is normal LV segmental wall motion. Transmitral Doppler flow pattern is Gra de I-abnormal relaxation pattern. RIGHT VENTRICLE The right ventricle is normal size. The right ventricular systolic function is normal. ATRIA The left atrium is mildly dilated. The right atrium size is normal. The interatrial septum is intact with no evidence for an atrial septal defect or patent foramen ovale as noted on 2-D or Doppler imagi ng. AORTIC VALVE The aortic valve is calcified but opens well. Doppler and Color Flow revealed no significant aortic r egurgitation. There is no significant aortic valvular stenosis. MITRAL VALVE The mitral valve is calcified but opens well. There is no evidence of mitral valve prolapse. There is no mitral valve stenosis. Doppler and Color Flow revealed no mitral valve regurgitation noted. TRICUSPID VALVE The tricuspid valve is normal in structure and function. Doppler and Color Flow revealed trace tricus pid regurgitation. The PA pressure was estimated at 35 mmHg. There is no tricuspid valve stenosis. PULMONIC VALVE The pulmonary valve is normal in structure and function. Doppler and Color Flow revealed trace pulmon ic valvular regurgitation. There is no pulmonic valvular stenosis. GREAT VESSELS The aortic root is normal in size. The ascending aorta is normal in size. The IVC is normal in size a nd collapses >50% with inspiration. PERICARDIAL EFFUSION There is no evidence of significant pericardial effusion. Critical Notification Critical Value: No <Conclusion> The left ventricle is normal size. The left ventricular systolic function is normal and the ejection fraction is within normal range. The Ejection Fraction is 55-60%. There is mild concentric left ventricular hypertrophy. There is no significant aortic valvular stenosis. Doppler and Color Flow revealed no significant aortic regurgitation. Doppler and Color Flow revealed no mitral valve regurgitation noted. Doppler and Color Flow revealed trace tricuspid regurgitation. The PA pressure was estimated at 35 mmHg.
--- NOTE | 2017-01-22 14:58 | PDOC ---
PROGRESS NOTES Subjective Subjective Patient seen and examined Objective Objective Vital Signs Date Time Temp Pulse Resp B/P Pulse Ox O2 Delivery O2 Flow Rate FiO2 01/22/17 08:39 88 134/81 01/22/17 08:00 Room Air 01/22/17 07:00 98.8 18 98.8 01/22/17 03:25 99 Intake and Output 01/22/17 07:00 Intake Total 400 ml Balance 400 ml Intake Oral 400 ml # Voids 4 # Bowel Movements 1 Physical Exam Abdomen: Normal bowel sounds Heart: Regular rate Extremities: No clubbing General: No acute distress Lungs: Clear to auscultation Assessment Assessment Problems Medical Problems: (1) Hypertensive encephalopathy Status: Acute (2) Moderate protein malnutrition Status: Acute 1. Malignant HTN: Resolved. Blood pressure under good control on oral medications. Echocardiogram shows normal LV systolic function with mild LVH. 2. Hypertensive encephalopathy: CT head no acute changes. Resolved 3. DM2:as per the primary service 4. HLP: continue present medications. Comment Review of Relevant I have reviewed the following items anne-marie (where applicable) has been applied. Labs Laboratory Tests Test 01/20/17 17:00 01/21/17 04:15 01/21/17 09:36 01/21/17 11:05 Nasal Screen MRSA (PCR) Negative (Negative) White Blood Count 9.5x10^3/uL (4.0-11.0) Red Blood Count 3.98x10^6/uL (3.50-5.40) Hemoglobin 11.5g/dL (12.0-15.5) Hematocrit 34.7% (36.0-47.0) Mean Corpuscular Volume 87fL (79-100) Mean Corpuscular Hemoglobin 29pg (25-35) Mean Corpuscular Hemoglobin Concent 33g/dL (31-37) Red Cell Distribution Width 12.9% (11.5-14.5) Platelet Count 359x10^3/uL (140-400) Neutrophils (%) (Auto) 60% (31-73) Lymphocytes (%) (Auto) 30% (24-48) Monocytes (%) (Auto) 6% (0-9) Eosinophils (%) (Auto) 3% (0-3) Basophils (%) (Auto) 1% (0-3) Neutrophils # (Auto) 5.7x10^3uL (1.8-7.7) Lymphocytes # (Auto) 2.9x10^3/uL (1.0-4.8) Monocytes # (Auto) 0.6x10^3/uL (0.0-1.1) Eosinophils # (Auto) 0.3x10^3/uL (0.0-0.7) Basophils # (Auto) 0.1x10^3/uL (0.0-0.2) Sodium Level 140mmol/L (136-145) Potassium Level 4.3mmol/L (3.5-5.1) Chloride Level 106mmol/L (98-107) Carbon Dioxide Level 21mmol/L (21-32) Anion Gap 13 (6-14) Blood Urea Nitrogen 20mg/dL (7-20) Creatinine 1.1mg/dL (0.6-1.0) Estimated GFR (Cockcroft-Gault) 61.7 Glucose Level 278mg/dL (70-99) Calcium Level 8.4mg/dL (8.5-10.1) Triglycerides Level 87mg/dL (0-150) Cholesterol Level 234mg/dL (0-200) LDL Cholesterol, Calculated 158mg/dL (0-100) VLDL Cholesterol, Calculated 17mg/dL (0-40) Non-HDL Cholesterol Calculated 175mg/dL (0-129) HDL Cholesterol 59mg/dL (40-60) Cholesterol/HDL Ratio 4.0 Thyroid Stimulating Hormone (TSH) 2.833uIU/mL (0.358-3.74) Hemoglobin A1c 10.3% (4.8-5.6) Test 01/21/17 15:14 01/21/17 17:32 01/21/17 20:54 01/22/17 06:45 Glucose (Fingerstick) 153mg/dL (70-99) 183mg/dL (70-99) 155mg/dL (70-99) White Blood Count 12.5x10^3/uL (4.0-11.0) Red Blood Count 3.82x10^6/uL (3.50-5.40) Hemoglobin 10.9g/dL (12.0-15.5) Hematocrit 33.3% (36.0-47.0) Mean Corpuscular Volume 87fL (79-100) Mean Corpuscular Hemoglobin 29pg (25-35) Mean Corpuscular Hemoglobin Concent 33g/dL (31-37) Red Cell Distribution Width 13.0% (11.5-14.5) Platelet Count 348x10^3/uL (140-400) Neutrophils (%) (Auto) 67% (31-73) Lymphocytes (%) (Auto) 24% (24-48) Monocytes (%) (Auto) 6% (0-9) Eosinophils (%) (Auto) 3% (0-3) Basophils (%) (Auto) 1% (0-3) Neutrophils # (Auto) 8.3x10^3uL (1.8-7.7) Lymphocytes # (Auto) 3.0x10^3/uL (1.0-4.8) Monocytes # (Auto) 0.7x10^3/uL (0.0-1.1) Eosinophils # (Auto) 0.3x10^3/uL (0.0-0.7) Basophils # (Auto) 0.1x10^3/uL (0.0-0.2) Sodium Level 139mmol/L (136-145) Potassium Level 3.8mmol/L (3.5-5.1) Chloride Level 105mmol/L (98-107) Carbon Dioxide Level 26mmol/L (21-32) Anion Gap 8 (6-14) Blood Urea Nitrogen 16mg/dL (7-20) Creatinine 1.0mg/dL (0.6-1.0) Estimated GFR (Cockcroft-Gault) 68.9 Glucose Level 123mg/dL (70-99) Calcium Level 8.5mg/dL (8.5-10.1) Test 01/22/17 07:21 Glucose (Fingerstick) 122mg/dL (70-99) Laboratory Tests Test 01/21/17 15:14 01/21/17 17:32 01/21/17 20:54 01/22/17 06:45 Glucose (Fingerstick) 153mg/dL (70-99) 183mg/dL (70-99) 155mg/dL (70-99) White Blood Count 12.5x10^3/uL (4.0-11.0) Red Blood Count 3.82x10^6/uL (3.50-5.40) Hemoglobin 10.9g/dL (12.0-15.5) Hematocrit 33.3% (36.0-47.0) Mean Corpuscular Volume 87fL (79-100) Mean Corpuscular Hemoglobin 29pg (25-35) Mean Corpuscular Hemoglobin Concent 33g/dL (31-37) Red Cell Distribution Width 13.0% (11.5-14.5) Platelet Count 348x10^3/uL (140-400) Neutrophils (%) (Auto) 67% (31-73) Lymphocytes (%) (Auto) 24% (24-48) Monocytes (%) (Auto) 6% (0-9) Eosinophils (%) (Auto) 3% (0-3) Basophils (%) (Auto) 1% (0-3) Neutrophils # (Auto) 8.3x10^3uL (1.8-7.7) Lymphocytes # (Auto) 3.0x10^3/uL (1.0-4.8) Monocytes # (Auto) 0.7x10^3/uL (0.0-1.1) Eosinophils # (Auto) 0.3x10^3/uL (0.0-0.7) Basophils # (Auto) 0.1x10^3/uL (0.0-0.2) Sodium Level 139mmol/L (136-145) Potassium Level 3.8mmol/L (3.5-5.1) Chloride Level 105mmol/L (98-107) Carbon Dioxide Level 26mmol/L (21-32) Anion Gap 8 (6-14) Blood Urea Nitrogen 16mg/dL (7-20) Creatinine 1.0mg/dL (0.6-1.0) Estimated GFR (Cockcroft-Gault) 68.9 Glucose Level 123mg/dL (70-99) Calcium Level 8.5mg/dL (8.5-10.1) Test 01/22/17 07:21 Glucose (Fingerstick) 122mg/dL (70-99) Microbiology 01/20/17 Urine Culture - Final, Complete 01/20/17 Urine Culture Result 1 (JOHN) - Final, Complete Medications Current Medications Sodium Chloride 1,000 ml @ 100 mls/hr Q10H IV Last administered on 01/20/17 13:27; Start 01/20/17 at 12:57; Stop 01/20/17 at 18:40; Status DC Nicardipine HCl/ Sodium Chloride (Cardene/Iv Sodium Chloride 0.9% 250ml) 270 ml @ 0 mls/hr CONT PRN IV SEE I/O RECORD Last administered on 01/21/17 07:08; Start 01/20/17 at 13:00; Stop 01/21/17 at 10:21; Status DC Ondansetron HCl (Zofran) 4 mg PRN Q8HRS PRN IV NAUSEA/VOMITING; Start 01/20/17 at 16:45; Stop 01/21/17 at 16:44; Status DC Fentanyl Citrate 50 mcg 50 mcg PRN Q2HR PRN IV PAIN; Start 01/20/17 at 16:45; Stop 01/21/17 at 16:44; Status DC Sodium Chloride (Iv Sodium Chloride 0.9% 1000ml Bag) 1,000 ml @ 100 mls/hr Q10H IV Last administered on 01/20/17 16:36; Start 01/20/17 at 16:36; Stop at 18:40; Status DC Acetaminophen (Tylenol) 650 mg PRN Q4HRS PRN PO FEVER Last administered on 01/20 20:16; Start 01/20/17 at 16:45; Stop 01/21/17 at 12:06; Status DC Aspirin (Ecotrin) 81 mg DAILYWBKFT PO Last administered on 01/22/17 08:39; Start 01/21/17 at 08:00 Acetaminophen/ Hydrocodone Bitart (Lortab 5/325) 1 tab PRN Q6HRS PRN PO PAIN; Start 01/20/17 at 17:30 Lisinopril (Prinivil) 20 mg BID PO Last administered on 01/22/17 08:39; Start 01/20/17 at 21:00 Metformin HCl (Glucophage) 850 mg BIDWMEALS PO Last administered on 01/22/17 08:39; Start 01/20/17 at 18:00 Non-Formulary Medication 2 puff Q4HRS PRN IH SHORTNESS OF BREATH; Start at 17:30; Status UNV Glimepiride (Amaryl) 1 mg DAILYWBKFT PO Last administered on 01/22/17 08:39; Start 01/21/17 at 08:00 Hydrochlorothiazide (Microzide) 12.5 mg DAILY PO Last administered on 08:39; Start 01/21/17 at 09:00 Linagliptin (Tradjenta) 5 mg DAILY PO Last administered on 01/22/17 08:39; Start 01/21/17 at 09:00 Albuterol Sulfate (Ventolin Neb Soln) 2.5 mg PRN Q4HRS PRN NEB SHORTNESS OF BREATH; Start 01/20/17 at 17:45 Carvedilol (Coreg) 6.25 mg BIDWMEALS PO Last administered on 01/22/17 08:39; Start 01/21/17 at 11:00 Atorvastatin Calcium (Lipitor) 40 mg QHS PO Last administered on 01/21/17 20: 51; Start 01/21/17 at 21:00 Labetalol HCl (Normodyne) 20 mg PRN Q2HR PRN IVP HYPERTENSION, SEE COMMENTS; Start 01/21/17 at 10:30 Acetaminophen (Tylenol) 650 mg PRN Q6HRS PRN PO FEVER; Start 01/21/17 at 12:15 Ondansetron HCl (Zofran) 4 mg PRN Q6HRS PRN IV NAUSEA/VOMITING; Start 01/21/17 at 12:15 Insulin Aspart (Novolog) 0-9 UNITS TIDWMEALS SQ Last administered on 01/21/17 17:37; Start 01/21/17 at 13:00 Dextrose (Dextrose 50%-Water Syringe) 12.5 gm PRN Q15MIN PRN IV SEE COMMENTS; Start 01/21/17 at 12:15 Enoxaparin Sodium (Lovenox 40mg Syringe) 40 mg Q24H SQ Last administered on 15:13; Start 01/21/17 at 13:00 Active Scripts Active Carvedilol 6.25 Mg Tablet 6.25 Mg PO BIDWMEALS Atorvastatin Calcium 40 Mg Tablet 40 Mg PO QHS [place] 5-325 Tablet (Acetaminophen/Hydrocodone Bitart) 1 Each Tablet 1 Tab PO PRN Q6HRS PRN Reported Proventil Hfa Inhaler (Albuterol Sulfate) 6.7 Gm Hfa.aer.ad 2 Puff IH Q4HRS PRN Lisinopril 20 Mg Tablet 20 Tab PO BID Hydrochlorothiazide Tablet (Hydrochlorothiazide) 12.5 Mg Tablet 1 Tab PO DAILY Glimepiride 1 Mg Tablet 1 Tab PO DAILY Januvia (Sitagliptin Phosphate) 100 Mg Tablet 1 Tab PO DAILY Metformin Hcl 1,000 Mg Tablet 1 Tab PO BID Aspir 81 (Aspirin) 81 Mg Tablet. 1 Tab PO DAILY Vitals/I & O Vital Sign - Last 24 Hours 01/21/17 01/21/17 01/21/17 01/21/17 16:00 17:31 19:48 20:03 Temp 98.0 99.3 98.0 99.3 Pulse 99 92 94 Resp 22 B/P 124/82 124/82 161/95 Pulse Ox 99 98 O2 Delivery Room Air Room Air Room Air 01/21/17 01/21/17 01/22/17 01/22/17 20:51 23:30 03:25 03:25 Temp 98.3 98.0 98.3 98.0 Pulse 94 90 94 Resp 14 16 B/P 161/95 156/85 118/51 128/61 Pulse Ox 98 99 O2 Delivery Room Air Room Air 01/22/17 01/22/17 01/22/17 01/22/17 07:00 08:00 08:39 08:39 Temp 98.8 98.8 Pulse 88 88 88 Resp 18 B/P 134/81 134/81 134/81 O2 Delivery Room Air Room Air Intake and Output 01/21/17 01/21/17 01/22/17 15:00 23:00 07:00 Intake Total 250 ml 150 ml Balance 250 ml 150 ml VIDHYA GARCIA MD Jan 22, 2017 14:58
== END 2017-01-22 12:30 | disposition home or self-care (01) | DRG 78 ==
LOC: ER 12:25 → 2 SOUTH 15:07 → 1 WEST ICU 17:54 → 2 SOUTH 01-21 19:45
PROVIDERS: ADMIT Internal Medicine; ATTEND Internal Medicine
DX: I67.4 Hypertensive encephalopathy (principal); I16.1 Hypertensive emergency; E44.0 Moderate protein-calorie malnutrition; Z68.42 Body mass index [BMI] 45.0-49.9, adult; I12.9 Hypertensive chronic kidney disease with stage 1 through stage 4 chronic kidney disease, or unspecified chronic kidney disease; E78.5 Hyperlipidemia, unspecified; E66.01 Morbid (severe) obesity due to excess calories; N18.2 Chronic kidney disease, stage 2 (mild); J45.909 Unspecified asthma, uncomplicated; Z96.659 Presence of unspecified artificial knee joint; R80.9 Proteinuria, unspecified; M19.90 Unspecified osteoarthritis, unspecified site; E11.22 Type 2 diabetes mellitus with diabetic chronic kidney disease; E03.9 Hypothyroidism, unspecified; Z82.49 Family history of ischemic heart disease and other diseases of the circulatory system; Z83.3 Family history of diabetes mellitus; Z86.73 Personal history of transient ischemic attack (TIA), and cerebral infarction without residual deficits; Z90.710 Acquired absence of both cervix and uterus; Z91.19 Patient's noncompliance with other medical treatment and regimen; Z91.012 Allergy to eggs
CPT/HCPCS: 36415; 70450; 71010; 80048; 80053; 80061; 81001; 82570; 82947; 83036; 83690; 83735; 84156; 84443; 85027; 85610; 85730; 87086; 87641; 93005; 93306; 94250; J1650; J1815; J7030; J7050; 99291-25

== ENCOUNTER → 2017-04-03 | Outpatient (CLI) | payer BC ==
[~2017-04-03] MED LIST changes: +ATOR40TA59 PO; +CARV6.252 PO
--- NOTE | 2017-04-03 11:25 | RAD ---
DATE: 04/03/2017 EXAM: DIGITAL SCREEN BILAT W/CAD HISTORY: Routine screening COMPARISON: 02/27/2015 This study was interpreted with the benefit of Computerized Aided Detection (CAD). The breast parenchyma shows scattered fibroglandular densities. Breast parenchyma level B. FINDINGS: No new or enlarging breast densities are seen. Benign type calcifications are again noted. No suspicious microcalcifications have developed. IMPRESSION: Stable mammograms without evidence of malignancy. BI-RADS CATEGORY: 2 BENIGN FINDING(S) RECOMMENDED FOLLOW-UP: 12M 12 MONTH FOLLOW-UP PQRS compliance statement: Patient information was entered into a reminder system with a target due date for the next mammogram. Mammography is a sensitive method for finding small breast cancers, but it does not detect them all and is not a substitute for careful clinical examination. A negative mammogram does not negate a clinically suspicious finding and should not result in delay in biopsying a clinically suspicious abnormality. "Our facility is accredited by the [employer] Mammography Program."
== END | disposition home or self-care (01) ==
LOC: MAMMO 10:36
PROVIDERS: ATTEND Internal Medicine
DX: Z12.31 Encounter for screening mammogram for malignant neoplasm of breast (principal)
CPT/HCPCS: G0202; 77067